=== PATIENT | male | born 1975 | race Hispanic/Latino ===

== ENCOUNTER 2020-02-17 07:00 | Emergency (ER) | payer SELFPAY ==
[~2020-02-17 07:00] MED LIST: ALBU18HF7 IH; AMLO10TA7 PO; FURO20TA6 PO; LOSA1TAB42 PO; METF-444 PO; SIMV10TA97 PO; SYMB8060 IH
[2020-02-17] MEDS ORDERED: OXYMETAZOLINE HCL SPRAY 15 ML BOTTLE ONE (07:27)
[2020-02-17] MEDS ORDERED: METOPROLOL TARTRATE 50 MG TAB ONE ×2 (07:38→08:27)
[2020-02-17] MEDS ORDERED: LABETALOL 20 MG/4 ML DISP.SYRIN IV ONE (09:28)
[2020-02-17] MEDS ORDERED: LORAZEPAM 2 MG/ML 1 ML VIAL ONE (09:29)
[2020-02-17 09:43] LABS: BASOPHILS % (AUTO) 0.4 % (0.0-5.0); HEMATOCRIT 50.6 % (42-54); LYMPHOCYTES % (AUTO) 21.4 % (21.0-51.0); MEAN CORPUSCULAR HEMOGLOBIN 27.7 pg (27.0-33.0); MEAN CORPUSCULAR HGB CONC 32.2 g/dL (32.0-36.0); MEAN CORPUSCULAR VOLUME 86.1 fL (79-99); MONOCYTES % (AUTO) 9.4 % (3.0-13.0); NEUTROPHILS % (AUTO) 67.4 % (40.0-77.0); PLATELET COUNT (AUTO) 197 K/uL (130-400); RED BLOOD CELL COUNT(AUTO) 5.88 MIL/uL (4.50-6.20); RED CELL DISTRIBUTION WIDTH 15.3 % (11.0-15.5); WHITE BLOOD COUNT (AUTO) 7.2 K/uL (4.8-10.8)
[2020-02-17 09:49] LABS: CREATININE 0.9 mg/dL (0.5-1.5); POTASSIUM 4.4 mmol/L (3.5-5.1)
[2020-02-17 09:52] LABS: INR 1.04 (0.85-1.15); PARTIAL THROMBOPLASTIN TIME 27.1 SEC (26.3-35.5); PROTHROMBIN TIME 11.2 SEC (9.6-11.6)
== END 2020-02-17 14:43 | disposition home or self-care (01) ==
LOC: EDH 07:00
DX: R04.0 Epistaxis (principal); I10 Essential (primary) hypertension; Z79.899 Other long term (current) drug therapy
CPT/HCPCS: 30901; 36415; 80048; 85025; 85610; 85730; 96374; 96375; 99285; J2060

== ENCOUNTER 2020-04-28 01:50 | Emergency (ER) | payer OTHER ==
[~2020-04-28 01:50] MED LIST changes: +AMLO-258 PO; -AMLO10TA7 PO
[2020-04-28] MEDS ORDERED: NITROGLYCERIN 0.4 MG SL TAB SL ONE (02:42)
[2020-04-28] MEDS ORDERED: ASPIRIN 325 MG TABLET ONE (02:42)
[2020-04-28 02:43] LABS: BASOPHILS % (AUTO) 0.4 % (0.0-5.0); EOSINOPHILS % (AUTO) 2.1 % (0.0-8.0); HEMATOCRIT 46.9 % (42-54); LYMPHOCYTES % (AUTO) 25.8 % (21.0-51.0); MEAN CORPUSCULAR HGB CONC 31.6 g/dL (32.0-36.0); MEAN CORPUSCULAR VOLUME 82.3 fL (79-99); NEUTROPHILS % (AUTO) 58.6 % (40.0-77.0); PLATELET COUNT (AUTO) 207 K/uL (130-400); RED CELL DISTRIBUTION WIDTH 14.7 % (11.0-15.5); WHITE BLOOD COUNT (AUTO) 7.1 K/uL (4.8-10.8)
[2020-04-28 02:51] LABS: CREATININE 1.2 mg/dL (0.5-1.5); POTASSIUM 3.9 mmol/L (3.5-5.1)
[2020-04-28 02:54] LABS: INR 1.04 (0.85-1.15); PARTIAL THROMBOPLASTIN TIME 26.9 SEC (26.3-35.5); PROTHROMBIN TIME 11.2 SEC (9.6-11.6)
[2020-04-28 02:56] LABS: ALBUMIN 3.5 g/dL (3.5-5.0); BILIRUBIN,TOTAL 0.7 mg/dL (0.2-1.0); TOTAL PROTEIN, SERUM 8.5 g/dL (6.0-8.3)
[2020-04-28 03:02] LABS: APPEARANCE,URINE Clear (CLEAR); BILIRUBIN,URINE Negative (NEGATIVE); COLOR,URINE Yellow (YELLOW); GLUCOSE, URINE (UA) Negative (NEGATIVE); KETONES,URINE Negative (NEGATIVE); LEUKOCYTE ESTERASE ,URINE Negative (NEGATIVE); NITRATE,URINE Negative (NEGATIVE); OCCULT BLOOD,URINE Trace (NEGATIVE); PH,URINE 6.5 (5.0-8.0); PROTEIN,URINE >=1000 mg/dL (NEGATIVE)
[2020-04-28 03:10] LABS: AMPHET/METH SCREEN,URINE NEGATIVE (NEGATIVE); BARBITURATE SCREEN, URINE NEGATIVE (NEGATIVE); BENZODIAZEPINES SCREEN,URINE NEGATIVE (NEGATIVE); CANNABINOID SCREEN,URINE NEGATIVE (NEGATIVE); COCAINE SCREEN,URINE NEGATIVE (NEGATIVE); OPIATE SCREEN,URINE NEGATIVE (NEGATIVE); PHENCYCLIDINE SCREEN,URINE NEGATIVE (NEGATIVE)
[2020-04-28 03:16] LABS: BACTERIA,URINE None Seen /HPF (None Seen); RBC,URINE 0-1 /HPF (0-1); WBC,URINE None Seen /HPF (0-1)
[2020-04-28] MEDS ORDERED: METOCLOPRAMIDE 10 MG/2 ML VIAL ONE (03:26)
[2020-04-28] MEDS ORDERED: DiphenhydrAMINE HCL 50 MG/ML VIAL ONE ×2 (03:26→05:58)
[2020-04-28] MEDS ORDERED: ONDANSETRON HCL 4 MG/2 ML VIAL ONE (03:26)
[2020-04-28] MEDS ORDERED: FAMOTIDINE/PF 20 MG/2 ML VIAL IV ONE (03:27)
[2020-04-28] MEDS ORDERED: PANTOPRAZOLE 40 MG/VIAL ONE (03:27)
[2020-04-28] MEDS ORDERED: LIDOCAINE HCL 2% VISCOUS 15 ML UDCUP ONE (04:54)
[2020-04-28] MEDS ORDERED: MAG HYDROX/AL HYDROX/SIMETH ES 30 ML SUSP UDCUP ONE (04:54)
[2020-04-28] MEDS ORDERED: HYDRALAZINE HCL 20 MG/ML VIAL ONE (05:58)
[2020-04-28] MEDS ORDERED: KETOROLAC TROMETHAMINE 30MG/ML ONE (05:59)
== END 2020-04-28 17:47 | disposition home or self-care (01) ==
LOC: EDH 01:50
DX: R07.89 Other chest pain (principal); R10.13 Epigastric pain; R06.02 Shortness of breath; I10 Essential (primary) hypertension; Z79.899 Other long term (current) drug therapy
CPT/HCPCS: 36415; 71045; 76705; 80053; 80305; 81001; 82550; 83605; 83690; 83880; 84484 ×2; 85025; 85610; 85730; 93005; 96365; 96375 ×2; 96376; 99285; C9113; J0360; J1200 ×2; J1885; J2405; J2765; J3490; 96374

== ENCOUNTER 2020-05-18 19:47 | Emergency (ER) | payer SELFPAY ==
[2020-05-18 20:42] LABS: BASOPHILS % (AUTO) 0.7 % (0.0-5.0); EOSINOPHILS % (AUTO) 1.7 % (0.0-8.0); HEMATOCRIT 45.4 % (42-54); LYMPHOCYTES % (AUTO) 25.6 % (21.0-51.0); MEAN CORPUSCULAR HEMOGLOBIN 25.2 pg (27.0-33.0); MEAN CORPUSCULAR HGB CONC 31.1 g/dL (32.0-36.0); MEAN CORPUSCULAR VOLUME 81.1 fL (79-99); NEUTROPHILS % (AUTO) 58.5 % (40.0-77.0); PLATELET COUNT (AUTO) 190 K/uL (130-400); RED CELL DISTRIBUTION WIDTH 15.3 % (11.0-15.5); WHITE BLOOD COUNT (AUTO) 5.9 K/uL (4.8-10.8)
[2020-05-18 20:54] LABS: CREATININE 1.2 mg/dL (0.5-1.5); POTASSIUM 3.6 mmol/L (3.5-5.1)
[2020-05-18 20:58] LABS: ALBUMIN 3.4 g/dL (3.5-5.0); BILIRUBIN,TOTAL 0.4 mg/dL (0.2-1.0)
[2020-05-18] MEDS ORDERED: SODIUM CHLORIDE 0.9% 1000ML 1,000 ML IV ONE (20:58)
[2020-05-18] MEDS ORDERED: LIDOCAINE HCL 2% VISCOUS 15 ML UDCUP ONE (20:58)
[2020-05-18] MEDS ORDERED: FAMOTIDINE/PF 20 MG/2 ML VIAL IV ONE (20:58)
[2020-05-18] MEDS ORDERED: MAG HYDROX/AL HYDROX/SIMETH ES 30 ML SUSP UDCUP ONE (20:58)
== END 2020-05-18 21:58 | disposition home or self-care (01) ==
LOC: EDH 19:47
DX: R10.13 Epigastric pain (principal); I10 Essential (primary) hypertension; Z79.899 Other long term (current) drug therapy
CPT/HCPCS: 36415; 80053; 83690; 84484; 85025; 93005; 96361; 96374; 99284; J3490; J7030

== ENCOUNTER 2020-05-21 11:51 | Inpatient (IN) | payer SELFPAY ==
[~2020-05-21] VITALS: Ht 182.9 cm; Wt 140.0 kg
[2020-05-21] MEDS ORDERED: METOPROLOL TARTRATE 1 MG/ML 5ML VIAL IV ONE ×2 (12:18→15:22)
[2020-05-21 12:31] LABS: BASOPHILS % (AUTO) 0.5 % (0.0-5.0); EOSINOPHILS % (AUTO) 1.1 % (0.0-8.0); HEMATOCRIT 45.8 % (42-54); LYMPHOCYTES % (AUTO) 20.3 % (21.0-51.0); MEAN CORPUSCULAR HEMOGLOBIN 25.4 pg (27.0-33.0); MEAN CORPUSCULAR HGB CONC 31.2 g/dL (32.0-36.0); MEAN CORPUSCULAR VOLUME 81.2 fL (79-99); MONOCYTES % (AUTO) 11.4 % (3.0-13.0); NEUTROPHILS % (AUTO) 66.4 % (40.0-77.0); PLATELET COUNT (AUTO) 192 K/uL (130-400); RED BLOOD CELL COUNT(AUTO) 5.64 MIL/uL (4.50-6.20); RED CELL DISTRIBUTION WIDTH 15.7 % (11.0-15.5); WHITE BLOOD COUNT (AUTO) 6.3 K/uL (4.8-10.8)
[2020-05-21 12:43] LABS: INR 1.16 (0.85-1.15); PROTHROMBIN TIME 12.2 SEC (9.6-11.6)
[2020-05-21 12:44] LABS: PARTIAL THROMBOPLASTIN TIME 27.1 SEC (26.3-35.5)
[2020-05-21 12:51] LABS: CREATININE 1.1 mg/dL (0.5-1.5); POTASSIUM 3.7 mmol/L (3.5-5.1)
[2020-05-21 12:56] LABS: ALBUMIN 3.4 g/dL (3.5-5.0); BILIRUBIN,TOTAL 0.9 mg/dL (0.2-1.0)
[2020-05-21] MEDS ORDERED: MAG HYDROX/AL HYDROX/SIMETH ES 30 ML SUSP UDCUP ONE (14:02)
[2020-05-21] MEDS ORDERED: LIDOCAINE HCL 2% VISCOUS 15 ML UDCUP ONE (14:02)
[2020-05-21] MEDS ORDERED: FAMOTIDINE 20MG TAB 20 MG TAB ONE (14:03)
[2020-05-21] MEDS ORDERED: NITROGLYCERIN 50 MG/D5% WATER 1 BOT ONE (16:18)
[2020-05-21] MEDS ORDERED: HYDRALAZINE HCL 20 MG/ML VIAL IV PRN (16:45)
[2020-05-21] MEDS ORDERED: HYDROCHLOROTHIAZIDE 25 MG TABLET PO SCH (16:45)
[2020-05-21] MEDS ORDERED: AMLODIPINE BESYLATE 5 MG TAB ONE (17:09)
[2020-05-21] MEDS ORDERED: HYDROCHLOROTHIAZIDE 25 MG TABLET ONE (17:10)
[2020-05-21 17:49] LABS: AMPHET/METH SCREEN,URINE NEGATIVE (NEGATIVE); BARBITURATE SCREEN, URINE NEGATIVE (NEGATIVE); BENZODIAZEPINES SCREEN,URINE NEGATIVE (NEGATIVE); CANNABINOID SCREEN,URINE NEGATIVE (NEGATIVE); COCAINE SCREEN,URINE NEGATIVE (NEGATIVE); OPIATE SCREEN,URINE NEGATIVE (NEGATIVE); PHENCYCLIDINE SCREEN,URINE NEGATIVE (NEGATIVE)
[2020-05-21] MEDS ORDERED: AMLODIPINE BESYLATE 5 MG TAB PO SCH (17:55)
[2020-05-21] MEDS ORDERED: LIDOCAINE HCL 2% VISCOUS 30 ML, MAG HYDROX/AL HYDROX/SIMETH 30 ML, BELLADONNA-PHENOBARB... PO PRN ×3 (18:45)
[2020-05-21] MEDS ORDERED: ACETAMINOPHEN-CODEINE 300/30MG TAB PO PRN (18:45)
[2020-05-21] MEDS ORDERED: NITROGLYCERIN 50 MG/D5% WATER 250 BOT IV SCH (18:45)
[2020-05-21] MEDS ORDERED: COMPOUND PO MISCELLANEOUS 1 EACH MISC MISC PRN (19:00)
[2020-05-21] MEDS ORDERED: LIDO 2% VISC 30ML+MAG/AL/SIMETH 30ML+DICYCLOMINE 20MG 10ML PO PRN ×3 (19:00)
[2020-05-21] MEDS ORDERED: LABETALOL 20 MG/4 ML DISP.SYRIN IV ONE ×2 (19:11→23:03)
[2020-05-21] MEDS ORDERED: METOPROLOL TARTRATE 50 MG TAB ONE (19:11)
[2020-05-21 20:03] LABS: % IRON SATURATION 14.6 % (30-44); IRON, SERUM 56 mcg/dL (65-175); TOTAL IRON BINDING CAPACITY 383 mcg/dL (250-450)
[2020-05-21] MEDS ORDERED: ENOXAPARIN SODIUM 40 MG/0.4 ML SYRINGE SQ ONE (20:29)
[2020-05-21] MEDS ORDERED: PANTOPRAZOLE 40 MG/VIAL ONE (20:30)
[2020-05-21] MEDS ORDERED: ACETAMINOPHEN-CODEINE 300/30MG TAB ONE (22:53)
[2020-05-22] MEDS ORDERED: METOPROLOL TARTRATE 50 MG TAB ONE ×4 (04:54→21:11)
[2020-05-22] MEDS ORDERED: PANTOPRAZOLE 40 MG/VIAL ONE ×2 (09:41→21:11)
[2020-05-22] MEDS ORDERED: LOSARTAN 50 MG TABLET ONE (09:41)
[2020-05-22] MEDS ORDERED: ENOXAPARIN SODIUM 40 MG/0.4 ML SYRINGE SQ ONE (09:41)
[2020-05-22] MEDS ORDERED: AMLODIPINE BESYLATE 5 MG TAB ONE (09:45)
[2020-05-22 10:40] LABS: CREATININE 1.1 mg/dL (0.5-1.5)
[2020-05-22 10:59] LABS: BASOPHILS % (AUTO) 0.3 % (0.0-5.0); EOSINOPHILS % (AUTO) 0.8 % (0.0-8.0); HEMATOCRIT 46.6 % (42-54); LYMPHOCYTES % (AUTO) 15.3 % (21.0-51.0); MEAN CORPUSCULAR HEMOGLOBIN 24.8 pg (27.0-33.0); MEAN CORPUSCULAR HGB CONC 30.9 g/dL (32.0-36.0); MEAN CORPUSCULAR VOLUME 80.2 fL (79-99); MONOCYTES % (AUTO) 10.5 % (3.0-13.0); NEUTROPHILS % (AUTO) 72.9 % (40.0-77.0); PLATELET COUNT (AUTO) 185 K/uL (130-400); RED BLOOD CELL COUNT(AUTO) 5.81 MIL/uL (4.50-6.20); WHITE BLOOD COUNT (AUTO) 6.5 K/uL (4.8-10.8)
[2020-05-22] MEDS ORDERED: LABETALOL 20 MG/4 ML DISP.SYRIN IV ONE (15:43)
[2020-05-23 06:32] LABS: BASOPHILS % (AUTO) 0.3 % (0.0-5.0); EOSINOPHILS % (AUTO) 2.1 % (0.0-8.0); HEMATOCRIT 46.7 % (42-54); LYMPHOCYTES % (AUTO) 23.1 % (21.0-51.0); MEAN CORPUSCULAR HEMOGLOBIN 25.2 pg (27.0-33.0); MEAN CORPUSCULAR HGB CONC 30.8 g/dL (32.0-36.0); MEAN CORPUSCULAR VOLUME 81.6 fL (79-99); MONOCYTES % (AUTO) 12.7 % (3.0-13.0); NEUTROPHILS % (AUTO) 61.6 % (40.0-77.0); PLATELET COUNT (AUTO) 199 K/uL (130-400); RED BLOOD CELL COUNT(AUTO) 5.72 MIL/uL (4.50-6.20); RED CELL DISTRIBUTION WIDTH 16.1 % (11.0-15.5); WHITE BLOOD COUNT (AUTO) 6.2 K/uL (4.8-10.8)
[2020-05-23 06:49] LABS: CREATININE 1.1 mg/dL (0.5-1.5); MAGNESIUM 2.3 mg/dL (1.80-2.40); POTASSIUM 3.5 mmol/L (3.5-5.1)
[2020-05-23] MEDS ORDERED: AMLODIPINE BESYLATE 5 MG TAB ONE ×2 (08:48→08:53)
[2020-05-23] MEDS ORDERED: METOPROLOL TARTRATE 50 MG TAB ONE ×2 (08:49→22:03)
[2020-05-23] MEDS ORDERED: LOSARTAN 50 MG TABLET ONE (08:49)
[2020-05-23] MEDS ORDERED: PANTOPRAZOLE 40 MG/VIAL ONE ×2 (08:49→22:03)
[2020-05-23] MEDS ORDERED: HYDROCHLOROTHIAZIDE 25 MG TABLET ONE (08:49)
[2020-05-23] MEDS ORDERED: ENOXAPARIN SODIUM 40 MG/0.4 ML SYRINGE SQ ONE (08:52)
[2020-05-23 09:13] LABS: HEPATITIS A ANTIBODY IGM Negative (Negative); HEPATITIS B CORE IGM Negative (Negative); HEPATITIS Bs ANTIGEN SCREEN P Negative (Negative)
[2020-05-23] MEDS ORDERED: ENALAPRILAT DIHYDRATE 1.25MG/ML 1ML VIAL IV ONE (11:50)
[2020-05-23] MEDS ORDERED: SUCRALFATE 1 GM TABLET ONE (17:59)
[2020-05-23] MEDS: LOSARTAN 100 MG TABLET PO SCH (23:30)
[2020-05-23] MEDS: PANTOPRAZOLE 40 MG/VIAL IVP SCH (23:30)
[2020-05-23] MEDS: AMLODIPINE BESYLATE 5 MG TAB PO SCH (23:30)
[2020-05-23] MEDS: SUCRALFATE 1 GM TABLET PO SCH (23:30)
[2020-05-23] MEDS: ENOXAPARIN SODIUM 40 MG/0.4 ML SYRINGE SQ SCH (23:30)
[2020-05-23] MEDS: METOPROLOL TARTRATE 50 MG TAB PO SCH (23:30)
[2020-05-23] MEDS: HYDROCHLOROTHIAZIDE 25 MG TABLET PO SCH (23:30)
[2020-05-23 23:35] VITALS: BP 163/118
[2020-05-24 04:43] VITALS: BP 158/102
[2020-05-24 05:26] LABS: BASOPHILS % (AUTO) 0.4 % (0.0-5.0); EOSINOPHILS % (AUTO) 2.2 % (0.0-8.0); HEMATOCRIT 49.7 % (42-54); LYMPHOCYTES % (AUTO) 25.7 % (21.0-51.0); MEAN CORPUSCULAR HEMOGLOBIN 24.7 pg (27.0-33.0); MEAN CORPUSCULAR HGB CONC 30.4 g/dL (32.0-36.0); MEAN CORPUSCULAR VOLUME 81.2 fL (79-99); MONOCYTES % (AUTO) 12.9 % (3.0-13.0); NEUTROPHILS % (AUTO) 58.4 % (40.0-77.0); PLATELET COUNT (AUTO) 217 K/uL (130-400); RED BLOOD CELL COUNT(AUTO) 6.12 MIL/uL (4.50-6.20); RED CELL DISTRIBUTION WIDTH 16.5 % (11.0-15.5); WHITE BLOOD COUNT (AUTO) 7.2 K/uL (4.8-10.8)
[2020-05-24] MEDS: SUCRALFATE 1 GM TABLET PO SCH ×4 (05:32→23:08)
[2020-05-24 05:49] LABS: CREATININE 1.2 mg/dL (0.5-1.5); POTASSIUM 3.3 mmol/L (3.5-5.1)
[2020-05-24] MEDS ORDERED: PANTOPRAZOLE SODIUM 40 MG TABLET.DR ONE (07:47)
[2020-05-24] MEDS: HYDROCHLOROTHIAZIDE 25 MG TABLET PO SCH (07:49)
[2020-05-24] MEDS: AMLODIPINE BESYLATE 5 MG TAB PO SCH (07:49)
[2020-05-24] MEDS: LOSARTAN 100 MG TABLET PO SCH (07:49)
[2020-05-24] MEDS: METOPROLOL TARTRATE 50 MG TAB PO SCH ×2 (07:50→20:31)
[2020-05-24] MEDS: ENOXAPARIN SODIUM 40 MG/0.4 ML SYRINGE SQ SCH (07:50)
[2020-05-24] MEDS: PANTOPRAZOLE 40 MG/VIAL IVP SCH ×2 (08:04→21:35)
[2020-05-24] MEDS ORDERED: METO100T14 PO (11:41)
[2020-05-24] MEDS ORDERED: PANT40TA PO (11:41)
[2020-05-24] MEDS ORDERED: MAAL30 PO (11:41)
[2020-05-24] MEDS ORDERED: SUCR1TAB28 PO (11:41)
[2020-05-24] MEDS ORDERED: PHARMACY COMMUNICATION MISC SCH (11:45)
[2020-05-24] MEDS ORDERED: COMPOUND PO MISCELLANEOUS 1 EACH MISC MISC PRN (11:45)
[2020-05-24 15:30] VITALS: BP 168/110
[2020-05-24] MEDS ORDERED: HYDRALAZINE HCL 25 MG TABLET ONE (16:03)
[2020-05-24] MEDS: HYDRALAZINE HCL 25 MG TABLET PO SCH ×2 (17:00→20:31)
[2020-05-24 20:00] VITALS: BP 162/110
[2020-05-24] MEDS: LABETALOL 20 MG/4 ML DISP.SYRIN IV PRN (23:46)
[2020-05-24] MEDS: LIDO 2% VISC 30ML+MAG/AL/SIMETH 30ML+DICYCLOMINE 20MG 10ML PO PRN ×3 (23:47)
[2020-05-25] VITALS: BP 179/112
[2020-05-25 01:15] VITALS: BP 154/67
[2020-05-25] MEDS: LABETALOL 20 MG/4 ML DISP.SYRIN IV PRN (03:51)
[2020-05-25 04:00] VITALS: BP 171/112
[2020-05-25] MEDS: SUCRALFATE 1 GM TABLET PO SCH (04:48)
[2020-05-25 04:53] VITALS: BP 168/108
[2020-05-25] MEDS: LIDO 2% VISC 30ML+MAG/AL/SIMETH 30ML+DICYCLOMINE 20MG 10ML PO PRN ×3 (05:52)
[2020-05-25] MEDS ORDERED: PANTOPRAZOLE SODIUM 40 MG TABLET.DR ONE (07:14)
[2020-05-25 07:17] VITALS: BP 161/103
[2020-05-25] MEDS: HYDROCHLOROTHIAZIDE 25 MG TABLET PO SCH (07:20)
[2020-05-25] MEDS: LOSARTAN 100 MG TABLET PO SCH (07:20)
[2020-05-25] MEDS: HYDRALAZINE HCL 25 MG TABLET PO SCH (07:20)
[2020-05-25] MEDS: AMLODIPINE BESYLATE 5 MG TAB PO SCH (07:20)
[2020-05-25] MEDS: ENOXAPARIN SODIUM 40 MG/0.4 ML SYRINGE SQ SCH (07:21)
[2020-05-25] MEDS: METOPROLOL TARTRATE 50 MG TAB PO SCH (07:21)
[2020-05-25] MEDS: PANTOPRAZOLE 40 MG/VIAL IVP SCH (09:00)
[2020-05-25] MEDS ORDERED: HYDR-4153 PO (11:23)
[2020-05-25] MEDS ORDERED: DICY10 PO (11:23)
[2020-05-25 11:59] VITALS: BP 159/105
== END 2020-05-25 14:15 | disposition home or self-care (01) | DRG 305 ==
LOC: EDH 11:51 → OBSVTOIN 11:52 → EDHIP 11:52 → 4CH 05-23 23:49
PROVIDERS: ADMIT Internal Medicine; ATTEND Internal Medicine
DX: I16.0 Hypertensive urgency (principal); E44.0 Moderate protein-calorie malnutrition; Z68.41 Body mass index [BMI] 40.0-44.9, adult; K21.9 Gastro-esophageal reflux disease without esophagitis; Z20.822 Contact with and (suspected) exposure to COVID-19; I10 Essential (primary) hypertension; K76.0 Fatty (change of) liver, not elsewhere classified; F17.210 Nicotine dependence, cigarettes, uncomplicated; R13.10 Dysphagia, unspecified; K57.90 Diverticulosis of intestine, part unspecified, without perforation or abscess without bleeding; I95.9 Hypotension, unspecified; K59.00 Constipation, unspecified; Z79.899 Other long term (current) drug therapy; Z82.49 Family history of ischemic heart disease and other diseases of the circulatory system
CPT/HCPCS: 36415; 70450; 74176; 80048; 80053; 80074; 80305; 82270; 82550; 82948; 83540; 83550; 83735; 83880; 84443; 84484; 85025; 85610; 85730; 86677; 87338; 87426; 92610; 93005; 93306; C9113; G0378; J1650; J3490; U0003

== ENCOUNTER 2020-11-22 18:12 | Emergency (ER) | payer BC ==
[~2020-11-22] VITALS: Ht 182.9 cm; Wt 142.4 kg
[~2020-11-22 18:12] MED LIST changes: +DICY10 PO; +HYDR-4153 PO; +MAAL30 PO; +METO100T14 PO; +PANT40TA PO; +SUCR1TAB28 PO
[2020-11-22 18:14] VITALS: BP 255/163
[2020-11-22 19:30] VITALS: BP 165/101
[2020-11-22] MEDS ORDERED: CORTSOL AD (20:41)
== END 2020-11-22 20:48 | disposition home or self-care (01) ==
LOC: EDH 18:12
DX: H92.03 Otalgia, bilateral (principal); I10 Essential (primary) hypertension; E10.9 Type 1 diabetes mellitus without complications; Z79.84 Long term (current) use of oral hypoglycemic drugs; Z79.899 Other long term (current) drug therapy
CPT/HCPCS: 99281; 99282

== ENCOUNTER 2024-04-10 11:22 | Emergency (ER) | payer BC ==
[~2024-04-10] VITALS: Ht 180.3 cm; Wt 124.7 kg
[~2024-04-10 11:22] MED LIST changes: -ALBU18HF7 IH; -AMLO-258 PO; +ASPI-1005 PO; -DICY10 PO; -FURO20TA6 PO; -HYDR-4153 PO; -MAAL30 PO; +SIMV-43 PO; -SIMV10TA97 PO; -SUCR1TAB28 PO; -SYMB8060 IH; +VERA360C2 PO
--- NOTE | 2024-04-10 11:35 | EKG ---
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 : 1975 Requested By: RIK SHANKAR Order Number: [id number] Reading MD: Clovis Ellis Measurements Intervals [place] Rate: 98 P: 63 WY: 214 QRS: 21 QRSD: 96 T: 36 QT: 334 QTc: 427 Interpretive Statements Sinus rhythm Prolonged [place] interval Low voltage, precordial leads Consider anteroseptal infarct question acute Compared to ECG 12/10/2023 02:01:53 First degree AV block now present Low QRS voltage now present Myocardial infarct finding now present Sinus tachycardia no longer present Electronically Signed On 04-11-2024 15:12:01 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
--- NOTE | 2024-04-10 11:40 | ERN ---
General Chief Complaint: Hypertension Stated Complaint: UNCONTROLLED BP X 2 DAYS Time Seen by MD: 11:24 Time Seen by Midlevel: 11:24 Source: patient History of Present Illness Initial Comments Patient is a 48-year-old male with a past medical history of atrial fibrillation, type 2 diabetes, and hypertension who presents to the emergency department for evaluation of an elevated blood pressure reading at home. Patient states that for the last two days blood pressure has been a little higher than usual. Initial blood pressure on arrival was today he states he developed a burning sensation to his chest so he decided to report to the ER for further evaluation. Current medications include when draw, metoprolol, and losartan. Patient denies any shortness of breath, nausea, vomiting, fever, chills, or any other symptoms at this time. Allergies: Coded Allergies: No Known Drug Allergies (Unverified Allergy, Unknown, 05/19/15) Home Meds Active Scripts Verapamil HCl (Verapamil HCl) 360 Mg Cap24h.pel, 360 MG PO DAILY for 30 Days, #30 MG Prov:MICHAEL OSORIO NP 12/12/23 Simvastatin (Simvastatin) 20 Mg Tablet, 20 MG PO HS, #30 TAB 0 Refills Prov:ESTHELA ALCOCER MD 06/17/23 Metoprolol Tartrate (Metoprolol Tartrate) 100 Mg Tablet, 100 MG PO BID for HTN for 30 Days, #60 TAB 0 Refills Prov:ESTHELA ALCOCER MD 06/17/23 Losartan/Hydrochlorothiazide (Losartan-Hctz 100-12.5 mg Tab) 100 Mg-12.5 Mg Tablet, 1 EACH PO DAILY, #30 TAB 0 Refills Prov:ESTHELA ALCOCER MD 06/17/23 Pantoprazole Sodium (Protonix) 40 Mg Tablet.dr, 40 MG PO DAILY for 30 Days, #30 TAB 0 Refills Prov:MESHA KELLOGG AGPCNP 05/24/20 Reported Medications Aspirin (ASPIRIN 81MG CHEW TAB) 81 Mg Tab.chew, 81 MG PO DAILY, TAB.CHEW 06/15/23 Metformin HCl (Metformin HCl) 500 Mg Tablet, 500 MG PO BIDAC, TAB 05/19/15 Past Medical History Past Medical History: A-Fib, Diabetes-Type II, High Cholesterol, Heart Disease, Hypertension Medical History Other: GASTRITIS Past Surgical History: None Surgical History Other: STENTS, CARDIAC ABLATION ROS Dictation CONSTITUTIONAL: Negative except for HPI HEAD/FACE: Negative except for HPI EENT: Negative except for HPI RESPIRATORY: Negative except for HPI GASTROINTESTINAL/ABDOMINAL: Negative except for HPI GENITOURINARY: Negative except for HPI MUSCULOSKELETAL: Negative except for HPI INTEGUMENTARY: Negative except for HPI NEUROLOGICAL/PSYCH: Negative except for HPI HEMATOLOGIC/LYMPHATIC: Negative except for HPI All Systems Negative, Except as noted above. 13 point review of systems assessed and all negative except for above. Physical Exam Physical Exam Dictation Vital Signs reviewed General Appearance: Alert, oriented x 3, no acute distress, well developed, nourished. Head and Face: non-traumatic. Eyes: PERRL, pink conjunctivas, eyelid no trauma, anterior chamber with arcus senilis. Ears: Pinnas intact and no signs of trauma or erythema ear canals clear and no discharge TM no erythema Nose: No discharge, no bleeding. Oropharynx: Mouth normal, tongue pink, pharynx clear,no erythema, tonsils no exudates, no abscesses noted, mucous memb matthew moist Neck: Supple, non-tender, no thyromegaly, no masses, no JVD, no bruits Breast:Deferred Chest:No tenderness, no crepitus, no paradoxical movement, no retractions Lungs:Clear, well-ventilated, symmetric, no rales, no wheezing, no rhonchi, no s tridor, good breath sounds bilaterally Heart: Regular rate, regular rhythm, no murmur, no gallops Vascular: no peripheral edema, Abdomen: Soft, positive bowel sounds, nondistended, no guarding, nontender, no rebound, no masses no hepatomegaly, no splenomegaly, no Liang's sign, no hernias. Rectal: Deferred Genital: Deferred Neurological: Normal speech, motor function intact, sensory function intact Musculoskeletal: Neck nontender, full range of motion, back nontender, full range of motion, Extremities: nontender, full range of motion Skin: Color pink, dry, no turgor, no rash, no lacerations, no abrasions, no contusions. Lymphatic: Deferred Results Laboratory and Microbiology Lab and Micro Result Laboratory Tests Test 04/10/24 12:00 White Blood Count 6.2 K/uL (4.8-10.8) Red Blood Count 5.31 MIL/uL (4.50-6.20) Hemoglobin 15.9 g/dL (14.0-18.0) Hematocrit 48.2 % (42-54) Mean Corpuscular Volume 90.8 fL (79-99) Mean Corpuscular Hemoglobin 29.9 pg (27.0-33.0) Mean Corpuscular Hemoglobin Concent 33.0 g/dL (32.0-36.0) Red Cell Distribution Width 12.5 % (11.0-15.5) Platelet Count 217 K/uL (130-400) Mean Platelet Volume 10.6 fL (7.5-10.5) H Immature Granulocyte % (Auto) 0.2 % (0-1) Neutrophils (%) (Auto) 55.9 % (40.0-77.0) Lymphocytes (%) (Auto) 31.3 % (21.0-51.0) Monocytes (%) (Auto) 10.6 % (3.0-13.0) Eosinophils (%) (Auto) 1.5 % (0.0-8.0) Basophils (%) (Auto) 0.5 % (0.0-5.0) Neutrophils # (Auto) 3.5 K/uL (1.8-7.7) Lymphocytes # (Auto) 1.9 K/uL (1.0-4.8) Monocytes # (Auto) 0.7 K/uL (0.1-1.0) Eosinophils # (Auto) 0.09 K/uL (0.00-0.70) Basophils # (Auto) 0.03 K/uL (0.00-0.20) Absolute Immature Granulocyte (auto 0.01 K/uL (0-1) Nucleated Red Blood Cells 0.0 % (0.0-0.19) Sodium Level 139 mmol/L (136-145) Potassium Level 4.2 mmol/L (3.5-5.1) Chloride Level 102 mmol/L (101-111) Carbon Dioxide Level 30 mmol/L (21-32) Blood Urea Nitrogen 17 mg/dL (7-18) Creatinine 0.9 mg/dL (0.5-1.3) Glomerular Filtration Rate Calc 105 mL/min (>90) Random Glucose 102 mg/dL (70-105) Total Calcium 9.6 mg/dL (8.5-10.1) Magnesium Level 1.70 mg/dL (1.80-2.40) L Total Creatine Kinase 54 U/L (21-232) # Troponin I High Sensitivity 8 ng/L (4-75) B-Type Natriuretic Peptide 31 pg/mL (0-100) Labs Reviewed?: Yes EKG/XRAY/US/CT/MRI EKG Comment Date: April 10, 2024 Time: 11:30 a.m. Ventricular rate: 98 MS interval: 214 QRS duration: 96 QT/QTc: 334/427 EKG interpretation: Normal sinus rhythm with a ventricular rate of 98 beats per minute, no ST elevations, no bundle branch blocks Reviewed by ED Attending MDM MDM: Differential diagnosis: ACS, noncardiac chest pain, costochondritis, anxiety, gastritis, reflux, uncontrolled hypertension There are no social concerns with this patient. Prescription drug management Prescriptions will include: None Medical management and examination interpretation discussions were had by me with other qualified healthcare professionals as indicated for the patient's care. ED Course Orders Procedure Category Date Status Time Cbc With Differential LAB 04/10/24 Complete 11:27 Basic Metabolic Panel LAB 04/10/24 Complete 11:27 B-Type Natriuretic LAB 04/10/24 Complete Peptide 11:27 Creatine Kinase, Total LAB 04/10/24 Complete 11:27 Magnesium LAB 04/10/24 Complete 11:27 Troponin I High LAB 04/10/24 Complete Sensitivity 11:27 12 Lead Ekg Tracing- EKG 04/10/24 Complete Technical 11:27 Chest 1vw RAD 04/10/24 Resulted 11:27 Vital Signs Date Time Temp Pulse Resp B/P (MAP) Pulse Ox O2 Delivery O2 Flow Rate FiO2 04/10/24 13:47 97.9 90 18 148/97 99 Room Air* 0 21 04/10/24 11:48 97.9 90 18 152/99 97 Room Air* 0 21 04/10/24 11:23 97.5 94 16 158/105 99 Room Air 0 [place] [id number] [address] IMAGING REPORT Signed PATIENT: MADISON SMITH MR#: [id number] : 1975 SEX: M AGE: 48 LOCATION: EDH ORDER [id number] STATUS: REG ER REPORT#: [id number] SERVICE 26 REASON: chest pain and sob ORDERING PHYSICIAN: RIK SHANKAR PROCEDURE: CXR1VW - CHEST 1VW CHEST 1VW REASON: chest pain and sob COMPARISON: 12/11/2023 FINDINGS: Single view of the chest was obtained. Lungs are clear. Heart size is normal. There is no pulmonary vascular congestion. Mediastinum and bony thorax appear unremarkable. IMPRESSION: 1. Normal single view chest x-ray. DICTATED BY: VICKY OWEN MD DATE: 04/10/24 1228 ELECTRONICALLY SIGNED BY: VICKY OWEN MD DATE: 04/10/24 1230 HEART Score Response (Comments) Value History: Low suspicion (0) 0 EKG: Normal 0 Age: 45-65yrs (+1) 1 Risk Factors: 3+ risk factors (+2) 2 Initial Troponin: Normal limit (0) 0 HEART Score Risk: Low Risk for MACE (1-3) Total 3 DX & DISP Disposition: Discharge Departure Impression: Primary Impression: Uncontrolled hypertension Additional Impression: Non-cardiac chest pain Condition: Stable Referrals: ZEKE SHANKAR MD (PCP) Time of Disposition: 13:36 I have reviewed the case, and I agree with, Diagnosis and Plan You have been reviewed in the emergency department at [facility] after presenting with chest pain. After considering your history, your risk factors, your EKG and your blood test troponins, have been found to be at very low risk less than (1 in 100) of having a major adverse cardiac event (like heart attack) in the near future. In the " low risk" group, the risks of doing further tests and treatment as the inpatient outweighs the benefits. In many patients in the low risk group for the test of any sort or unnecessary, however he should discuss this further with his general practitioner who will understand the medical and personal backgrounds better. Because we have never declared you" no risk" we would suggest. 1 returning for medical review if you have further episodes of chest pain/arm pain or other concerning symptoms like dizziness, collapse, palpitations or shortness of breath. 2. Following up with your local doctor who will consider the need for further testing and will also ensure that any modifiable risk factors you may have for heart disease are optimally managed. Patient will be discharged in stable condition at the moment discharge patient s tates , no chest pain ATTESTATION BY PHYSICIAN I PERFORMED THE SUBSTANTIVE PORTION OF THE VISIT. I HAVE REVIEWED AND PERSONALLY MADE AND APPROVED THE MANAGEMENT PLAN THAT IS DOCUMENTED IN THE NOTE BY MYSELF FOR THE A PP. I ACKNOWLEDGED FOR RESPONSIBILITY FOR THE PATIENT'S MANAGEMENT PLAN. RIK SHANKAR Apr 10, 2024 11:40 ARMAAN NAIDU MD Apr 10, 2024 17:15
[2024-04-10 12:17] LABS: BASOPHILS # (AUTO) 0.03 K/uL (0.00-0.20); BASOPHILS % (AUTO) 0.5 % (0.0-5.0); EOSINOPHILS # (AUTO) 0.09 K/uL (0.00-0.70); EOSINOPHILS % (AUTO) 1.5 % (0.0-8.0); HEMATOCRIT 48.2 % (42-54); IMMATURE GRANULOCYTE ABSOLUTE 0.01 K/uL (0-1); LYMPHOCYTES # (AUTO) 1.9 K/uL (1.0-4.8); LYMPHOCYTES % (AUTO) 31.3 % (21.0-51.0); MEAN CORPUSCULAR HEMOGLOBIN 29.9 pg (27.0-33.0); MEAN CORPUSCULAR VOLUME 90.8 fL (79-99); MONOCYTES # (AUTO) 0.7 K/uL (0.1-1.0); MONOCYTES % (AUTO) 10.6 % (3.0-13.0); NEUTROPHILS # (AUTO) 3.5 K/uL (1.8-7.7); NEUTROPHILS % (AUTO) 55.9 % (40.0-77.0); PLATELET COUNT (AUTO) 217 K/uL (130-400); RED BLOOD CELL COUNT(AUTO) 5.31 MIL/uL (4.50-6.20); RED CELL DISTRIBUTION WIDTH 12.5 % (11.0-15.5); WHITE BLOOD COUNT (AUTO) 6.2 K/uL (4.8-10.8)
--- NOTE | 2024-04-10 12:30 | HMCIMG ---
CHEST 1VW REASON: chest pain and sob COMPARISON: 12/11/2023 FINDINGS: Single view of the chest was obtained. Lungs are clear. Heart size is normal. There is no pulmonary vascular congestion. Mediastinum and bony thorax appear unremarkable. IMPRESSION: 1. Normal single view chest x-ray.
[2024-04-10 12:45] LABS: B-TYPE NATRIURETIC PEPTIDE 31 pg/mL (0-100)
[2024-04-10 13:05] LABS: CREATININE 0.9 mg/dL (0.5-1.3); POTASSIUM 4.2 mmol/L (3.5-5.1)
[2024-04-10 13:10] LABS: MAGNESIUM 1.7 mg/dL (1.80-2.40)
[2024-04-10 13:47] VITALS: BP 148/97; PULSE 90; RESP 18; TEMP 97.9; O2SAT 99
== END 2024-04-10 13:54 | disposition home or self-care (01) ==
LOC: EDH 11:22
DX: I10 Essential (primary) hypertension (principal); R07.89 Other chest pain; E11.9 Type 2 diabetes mellitus without complications; E78.00 Pure hypercholesterolemia, unspecified; I48.91 Unspecified atrial fibrillation; Z79.82 Long term (current) use of aspirin; Z79.899 Other long term (current) drug therapy
CPT/HCPCS: 36415; 71045; 80048; 82550; 83735; 83880; 84484; 85025; 93005; 99284

== ENCOUNTER 2024-05-10 20:13 | Inpatient (IN) | payer BC ==
[~2024-05-10] VITALS: Ht 182.9 cm; Wt 144.2 kg
[2024-05-10 20:53] LABS: APPEARANCE,URINE CLEAR (CLEAR); BILIRUBIN,URINE NEGATIVE (NEGATIVE); COLOR,URINE COLORLESS (YELLOW); GLUCOSE, URINE (UA) NEGATIVE (NEGATIVE); KETONES,URINE NEGATIVE (NEGATIVE); LEUKOCYTE ESTERASE ,URINE NEGATIVE Leu/uL (NEGATIVE); NITRATE,URINE NEGATIVE (NEGATIVE); PH,URINE 6.5 (5.0-8.0); PROTEIN,URINE 100 mg/dL (NEGATIVE); UROBILINOGEN,URINE 0.2 mg/dL (0.2-1.0)
[2024-05-10 20:56] LABS: POTASSIUM 3.5 mmol/L (3.5-5.1)
[2024-05-10 20:57] LABS: ADD UA MICROSCOPIC YES
[2024-05-10 20:58] LABS: WBC,URINE 0-1 /HPF (0-1)
[2024-05-10 21:01] LABS: BASOPHILS # (AUTO) 0.03 K/uL (0.00-0.20); BASOPHILS % (AUTO) 0.5 % (0.0-5.0); EOSINOPHILS % (AUTO) 1.5 % (0.0-8.0); HEMATOCRIT 45.2 % (42-54); IMMATURE GRANULOCYTE ABSOLUTE 0.04 K/uL (0-1); LYMPHOCYTES # (AUTO) 1.4 K/uL (1.0-4.8); LYMPHOCYTES % (AUTO) 20.9 % (21.0-51.0); MEAN CORPUSCULAR HGB CONC 32.1 g/dL (32.0-36.0); MEAN CORPUSCULAR VOLUME 81.1 fL (79-99); MONOCYTES # (AUTO) 0.7 K/uL (0.1-1.0); NEUTROPHILS # (AUTO) 4.3 K/uL (1.8-7.7); NEUTROPHILS % (AUTO) 65.5 % (40.0-77.0); PLATELET COUNT (AUTO) 168 K/uL (130-400); RED BLOOD CELL COUNT(AUTO) 5.57 MIL/uL (4.50-6.20); RED CELL DISTRIBUTION WIDTH 15.7 % (11.0-15.5); WHITE BLOOD COUNT (AUTO) 6.6 K/uL (4.8-10.8)
--- NOTE | 2024-05-10 21:06 | HMCIMG ---
Exam Type: CHEST 1VW Clinical Information: cp Comparison: None Findings: The lungs are clear of infiltrates. The heart is normal in size. The bony and soft tissue structures of the chest are unremarkable. Impression: Clear lungs.
[2024-05-10] MEDS: hydrALAZine 20MG/ML VIAL IM ONE (21:18)
[2024-05-10] MEDS: ASPIRIN 325MG TAB PO ONE (21:19)
[2024-05-10] MEDS: hydrALAZine 20MG/ML VIAL IV ONE (21:19)
[2024-05-10 21:32] LABS: B-TYPE NATRIURETIC PEPTIDE 188 pg/mL (0-100)
[2024-05-10 22:20] LABS: SARS-CoV-2, RNA, NAAT NEGATIVE SARS CoV-2 (NEGATIVE)
[2024-05-10 22:21] LABS: INFLUENZA TYPE A Negative For Type A (NEGATIVE); INFLUENZA TYPE B Negative For Type B (NEGATIVE)
[2024-05-10 22:28] LABS: AMPHET/METH SCREEN,URINE NEGATIVE (NEGATIVE); BARBITURATE SCREEN, URINE NEGATIVE (NEGATIVE); BENZODIAZEPINES SCREEN,URINE NEGATIVE (NEGATIVE); CANNABINOID SCREEN,URINE NEGATIVE (NEGATIVE); COCAINE SCREEN,URINE NEGATIVE (NEGATIVE); OPIATE SCREEN,URINE NEGATIVE (NEGATIVE); PHENCYCLIDINE SCREEN,URINE NEGATIVE (NEGATIVE)
[2024-05-10] MEDS: LAbetaLOL 20MG SYG IV ONE (22:48)
[2024-05-10] MEDS ORDERED: morPHINE 4 MG SYG IV PRN (23:30)
[2024-05-10] MEDS ORDERED: ondanSETRON 4MG INJ IV PRN (23:30)
--- NOTE | 2024-05-10 23:38 | ERN ---
ED Note History of Present Illness Stated Complaint: C/O PALPITATIONS WITH PAIN TO BACK OF NECK Chief Complaint: Palpitations Time Seen by MD: 20:15 Allergies: Coded Allergies: No Known Drug Allergies (Unverified Allergy, Unknown, 05/19/15) Home Meds Active Scripts Verapamil HCl (Verapamil HCl) 360 Mg Cap24h.pel, 360 MG PO DAILY for 30 Days, #30 MG Prov:MICHAEL OSORIO NP 12/12/23 Simvastatin (Simvastatin) 20 Mg Tablet, 20 MG PO HS, #30 TAB 0 Refills Prov:ESTHELA ALCOCER MD 06/17/23 Metoprolol Tartrate (Metoprolol Tartrate) 100 Mg Tablet, 100 MG PO BID for HTN for 30 Days, #60 TAB 0 Refills Prov:ESTHELA ALCOCER MD 06/17/23 Losartan/Hydrochlorothiazide (Losartan-Hctz 100-12.5 mg Tab) 100 Mg-12.5 Mg Tablet, 1 EACH PO DAILY, #30 TAB 0 Refills Prov:ESTHELA ALCOCER MD 06/17/23 Pantoprazole Sodium (Protonix) 40 Mg Tablet.dr, 40 MG PO DAILY for 30 Days, #30 TAB 0 Refills Prov:MESHA KELLOGG AGPCNP 05/24/20 Reported Medications Aspirin (ASPIRIN 81MG CHEW TAB) 81 Mg Tab.chew, 81 MG PO DAILY, TAB.CHEW 06/15/23 Metformin HCl (Metformin HCl) 500 Mg Tablet, 500 MG PO BIDAC, TAB 05/19/15 Past Medical History Dictation 48-year-old male with past medical history of high blood pressure and enlarged heart presents via private vehicle with acute dyspnea and palpitations. Patient states that his blood pressure has been uncontrolled today and that he has been having difficulty breathing and has had exertional dyspnea. Patient denies fevers, chest pain, nausea, vomiting diaphoresis, syncope, presyncope, productive cough Past Medical History: Diabetes-Type II, Heart Disease, Hypertension Additional Past Medical Hx: GASTRITIS Surgical History: None Surgical History Other: STENTS, CARDIAC ABLATION Review of System Dictation See HPI Initial Vital Sign VS Vital Signs Date Time Temp Pulse Resp B/P (MAP) Pulse Ox O2 Delivery O2 Flow Rate FiO2 05/10/24 20:14 98.4 116 20 210/132 96 Room Air 12/25/24 20:42 0 21 Physical Exam Dictation Acutely weak appearing, elevated BMI, tachypneic, respiratory distress, no pitting edema, abdomen is soft, nontender, tachycardic, regular rhythm Results (Laboratory/Radiology) Laboratory/Radiology Laboratory Tests Test 05/10/24 20:41 05/10/24 20:45 05/10/24 21:13 05/10/24 21:49 White Blood Count 6.6 K/uL (4.8-10.8) Red Blood Count 5.57 MIL/uL (4.50-6.20) Hemoglobin 14.5 g/dL (14.0-18.0) Hematocrit 45.2 % (42-54) Mean Corpuscular Volume 81.1 fL (79-99) Mean Corpuscular Hemoglobin 26.0 pg (27.0-33.0) L Mean Corpuscular Hemoglobin Concent 32.1 g/dL (32.0-36.0) Red Cell Distribution Width 15.7 % (11.0-15.5) H Platelet Count 168 K/uL (130-400) Mean Platelet Volume 11.0 fL (7.5-10.5) H Immature Granulocyte % (Auto) 0.6 % (0-1) Neutrophils (%) (Auto) 65.5 % (40.0-77.0) Lymphocytes (%) (Auto) 20.9 % (21.0-51.0) L Monocytes (%) (Auto) 11.0 % (3.0-13.0) Eosinophils (%) (Auto) 1.5 % (0.0-8.0) Basophils (%) (Auto) 0.5 % (0.0-5.0) Neutrophils # (Auto) 4.3 K/uL (1.8-7.7) Lymphocytes # (Auto) 1.4 K/uL (1.0-4.8) Monocytes # (Auto) 0.7 K/uL (0.1-1.0) Eosinophils # (Auto) 0.10 K/uL (0.00-0.70) Basophils # (Auto) 0.03 K/uL (0.00-0.20) Absolute Immature Granulocyte (auto 0.04 K/uL (0-1) Nucleated Red Blood Cells 0.0 % (0.0-0.19) Sodium Level 137 mmol/L (136-145) Potassium Level 3.5 mmol/L (3.5-5.1) Chloride Level 102 mmol/L (101-111) Carbon Dioxide Level 30 mmol/L (21-32) Blood Urea Nitrogen 15 mg/dL (7-18) Creatinine 1.0 mg/dL (0.5-1.3) Glomerular Filtration Rate Calc 93 mL/min (>90) Random Glucose 116 mg/dL (70-105) H Total Calcium 8.9 mg/dL (8.5-10.1) Total Creatine Kinase 71 U/L (21-232) # B-Type Natriuretic Peptide 188 pg/mL (0-100) H Urine Color COLORLESS (YELLOW) Urine Appearance CLEAR (CLEAR) Urine pH 6.5 (5.0-8.0) Urine Specific [place] 1.007 (1.001-1.031) Urine Protein 100 mg/dL (NEGATIVE) H Urine Glucose (UA) NEGATIVE mg/dL (NEGATIVE) Urine Ketones NEGATIVE mg/dL (NEGATIVE) Urine Occult Blood +- (TRACE) (NEGATIVE) H Urine Nitrate NEGATIVE (NEGATIVE) Urine Bilirubin NEGATIVE mg/dL (NEGATIVE) Urine Urobilinogen 0.2 mg/dL (0.2-1.0) Urine Leukocyte Esterase NEGATIVE Padmini/uL Urine RBC 2-5 /HPF (0-1) H Urine WBC 0-1 /HPF (0-1) Urine Bacteria None /HPF (None Seen) Urine Opiates Screen NEGATIVE (NEGATIVE) Urine Barbiturates Screen NEGATIVE (NEGATIVE) Urine Phencyclidine Screen NEGATIVE (NEGATIVE) Urine Amphetamines Screen NEGATIVE (NEGATIVE) Urine Benzodiazepines Screen NEGATIVE (NEGATIVE) Urine Cocaine Screen NEGATIVE (NEGATIVE) Urine Marijuana (THC) Screen NEGATIVE (NEGATIVE) Troponin I < 0.05 ng/mL (0.00-0.05) Influenza Type A Antigen Negative For Type A Influenza Type B Antigen Negative For Type B SARS-CoV-2, RNA, NAAT NEGATIVE SARS CoV-2 ED Course ED Course Orders Procedure Category Date Status Time Vital Signs Per CPOE 05/10/24 Transmitted Routine 20:24 12 Lead Ekg Tracing- EKG 05/10/24 Logged Technical 20:24 Oxygen By Nc/Pulse Ox CPOE 05/10/24 Transmitted 20:24 Maintain Iv CPOE 05/10/24 Transmitted 20:24 Iv Insertion CPOE 05/10/24 Transmitted 20:24 Cardiac Monitoring CPOE 05/10/24 Transmitted 20:24 Pulse Oximetry With CPOE 05/10/24 Transmitted Vs And Prn 20:24 Activity: Br W/Brp CPOE 05/10/24 Transmitted With Assist 20:24 Creatine Kinase, Total LAB 05/10/24 Complete 20:24 Urinalysis Profile LAB 05/10/24 Complete 20:24 Bedside Troponin-I LAB.ER 05/10/24 In Process (Poc) 20:24 Basic Metabolic Panel LAB 05/10/24 Complete 20:24 Cbc With Differential LAB 05/10/24 Complete 20:31 B-Type Natriuretic LAB 05/10/24 Complete Peptide 20:31 Chest 1vw RAD 05/10/24 Resulted 20:31 Aspirin 325mg Tab PHA 05/10/24 Complete (Aspirin 325mg Tab) 21:00 Troponin Poc Order LAB 05/10/24 Complete Only 20:31 Hydralazine 20mg Inj PHA 05/10/24 Complete (Apresoline 20mg In 21:00 Hydralazine 20mg Inj PHA 05/10/24 Complete (Apresoline 20mg In 21:30 Covid Rna Naat LAB 05/10/24 Complete 21:45 Influenza Type A & B, LAB 05/10/24 Complete Rapid 21:45 Labetalol 20mg Syg PHA 05/10/24 Complete (Trandate 20mg Syg) 22:30 Drug Screen Urine LAB 05/10/24 Complete 22:12 Admit Orders ADM 05/10/24 Transmitted 23:25 Consistent Carb DIET 05/11/24 Transmitted Breakfast Basic Metabolic Panel LAB 05/11/24 Verified 04:00 Cbc With Differential LAB 05/11/24 Verified 04:00 Magnesium LAB 05/11/24 Verified 04:00 Phosphorus LAB 05/11/24 Verified 04:00 Acetaminophen 325 Tab PHA 05/10/24 In Process (Tylenol 325mg Tab 23:30 Enoxaparin Sodium 40 PHA 05/11/24 In Process Mg/0.4 Ml (Lovenox) 09:00 Hydralazine 20mg Inj PHA 05/10/24 In Process (Apresoline 20mg In 23:30 Morphine 4mg Syg PHA 05/10/24 In Process (Morphine 4mg Syg) 23:30 Ondansetron 4mg Inj PHA 05/10/24 In Process (Zofran 4mg Inj) 23:30 Lisinopril 10mg PHA 05/11/24 In Process (Prinivil 10mg) 09:00 Metoprolol Tartrate PHA 05/11/24 In Process 25 Mg Tab (Lopressor 09:00 Activity: Ad Yina CPOE 05/10/24 Transmitted 23:28 Condition: CPOE 05/10/24 Transmitted 23:28 Nurse To Enter Home CPOE 05/10/24 Transmitted Medication 23:28 Oxygen By Nc/Pulse Ox CPOE 05/10/24 Transmitted 23:28 Vital Signs(Adult CPOE 05/10/24 Transmitted Hospitalist) 23:28 Current Medications Medications (Trade) Dose Ordered Sig/Caroline Route PRN Reason Start Time Stop Time Status Last Admin Dose Admin Acetaminophen (TYLenol 325MG TAB) 650 mg Q6H PRN PO TEMPERATURE GREATER THAN 101.5 05/10/24 23:30 06/09/24 23:29 Aspirin (Aspirin 325mg Tab) 325 mg ONCE ONCE PO 05/10/24 21:00 05/10/24 21:01 DC 05/10/24 21:19 Enoxaparin Sodium (Lovenox) 40 mg DAILY SQ 05/11/24 09:00 06/10/24 08:59 Hydralazine HCl (APRESOLine 20MG INJ) 10 mg Q6H PRN IV For:SBP above 160;DBP above 90 05/10/24 23:30 06/09/24 23:29 Hydralazine HCl (APRESOLine 20MG INJ) 20 mg ONCE ONCE IM 05/10/24 21:00 05/10/24 21:01 DC Hydralazine HCl (APRESOLine 20MG INJ) 20 mg ONCE ONCE IV 05/10/24 21:30 05/10/24 21:31 DC 05/10/24 21:19 Labetalol HCl (TRANdate 20MG SYG) 20 mg ONCE ONCE IV 05/10/24 22:30 05/10/24 22:31 DC 05/10/24 22:48 Lisinopril (Prinivil 10mg) 10 mg DAILY PO 05/11/24 09:00 06/10/24 08:59 Metoprolol Tartrate (loprESSOR) 12.5 mg BID PO 05/11/24 09:00 06/10/24 08:59 Morphine Sulfate (morPHINE 4MG SYG) 4 mg Q4H PRN IV SEVERE PAIN (7-10) 05/10/24 23:30 05/17/24 23:29 Ondansetron HCl (zoFRAN 4MG INJ) 4 mg Q6H PRN IV NAUSEA/VOMITING 05/10/24 23:30 06/09/24 23:29 Vital Signs Date Time Temp Pulse Resp B/P (MAP) Pulse Ox O2 Delivery O2 Flow Rate FiO2 05/10/24 23:22 92 27 150/91 97 Room Air* 0 21 05/10/24 23:05 93 18 159/103 96 Room Air* 0 21 05/10/24 22:48 200/113 05/10/24 22:12 107 15 184/98 98 Room Air* 0 21 05/10/24 20:42 112 21 207/128 97 Room Air* 0 21 05/10/24 20:14 98.4 116 20 210/132 96 Room Air Medical Decision Making [place] dDX: CHF versus STEMI versus NSTEMI versus hypertensive crisis versus sepsis All diagnostics and imaging interpreted by me unless otherwise specified EK05/10/2024; 2025 Sinus tachycardia 109 beats per minute, normal axis, normal intervals, nonspecific ST-T changes EKG shows no acute ischemic changes. Troponin within normal limits. Doubt STEMI. Doubt NSTEMI. Chest x-ray shows no acute cardiopulmonary pathology. Doubt pneumonia. Doubt CHF. BNP within normal limits. Doubt acute decompensated heart failure. Electrolytes within normal limits. Doubt electrolyte derangement. Patient's blood pressure critically high greater than 200 systolic. Patient given IV hydralazine and IV labetalol and blood pressure improved and symptoms improved. Patient is having hypertensive crisis. Upon re-evaluation patient, patient's blood pressure remains controlled the pa tient is uncertain sinus symptomatic. Discussed ED workup patient. Discussed versus benefits of admission versus discharge and close primary care follow up with patient. Patient states he does not have any outpatient follow-up and he is afraid of symptoms for return. Patient does need blood pressure controlled. We will place patient in observation. Invited and answered all questions prior to admission. DX & DISP Disposition: Observation Decision to Admit Date: May 10, 2024 Decision to Admit Time: 23:36 Departure Impression: Primary Impression: Hypertensive crisis Critical Time: 30 minutes Condition: Stable Assign Patient to: Dr ALCOCER Referrals: SELF,REFERRAL (PCP) Time of Disposition: 23:37 MACKENZIE COSME DO May 10, 2024 23:37
--- NOTE | 2024-05-10 23:42 | HP ---
History of Present Illness Reason for Visit: Palpitations Referring MD: Alex RIOS History of Present Illness Mr. Enrique is a 48-year-old male that was seen and examined today on 05/10/2024. Patient is a good historian and personal health. Patient reports that he came to the emergency department with a chief complaint of palpitations. Onset was today at 5:30 p.m.. Location is to chest. Duration is on and off. Character is described as" like if I am winded. "Symptoms were alleviated with rest. 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 Patient denies any associated chest pain. Patient has a similar episode three months ago. When patient arrived to the emergency department blood pressure 210/132 mmHg which responded well to 1 of 10 mg of hydralazine and 20 mg of labetalol. CBC is unremarkable, troponin unremarkable, chest x-ray unremarkable, chemistry unremarkable, urinalysis unremarkable, urine toxicology unremarkable. Emergency room physician recommended that patient be admitted with a diagnosis of hypertensive. EKG showed sinus tachycardia at 1:09 a.m.. 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 Patient follows Dr. Ellis in the outpatient setting. Patient states he is going to make an appointment with Cardiology after being discharged. Past Medical History Patient History: Alzheimer's disease FATHER, Onset:60 years & older Asthma Cardiovascular disease BROTHER, Onset:30's - 40 BROTHER, Onset:30's - 40 Chronic obstructive pulmonary disease FATHER, Onset:60 years & older Diabetes mellitus BROTHER, Onset:40's - 50 Family history: Hypertension ADDITIONAL PAST MEDICAL HISTORY: [Hypertension, prediabetes, LESLEE, GERD, hyperlipidemia] SOCIAL HISTORY: [Negative for smoking, alcohol use, drug use. Patient lives with his brother Marin Enrique. Patient has good access to health care through his insurance. Patient denies difficulty pain is bills. Patient is typically independent of all his ADLs. 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 Dyspnea, Edema, Lt Headedness, Other Gastrointestinal: No: Nausea, Vomiting, Abdominal Pain, Diarrhea, Constipation, Melena, Hematochezia, Other Genitourinary: No Dysuria, No Frequency, No Incontinence, No Hematuria, No Retention, No Other Musculoskeletal: No: other, neck pain, shoulder pain, arm pain, back pain, hand pain, leg pain, foot pain Skin: No Urticaria, No Rash, No Other Neurological: No: Weakness, Numbness, Incoordination, Change in speech, Confusion, Seizures, Other Allergies: Coded Allergies: No Known Drug Allergies (Unverified Allergy, Unknown, 05/19/15) Scheduled Aspirin (Aspirin 81MG Chew Tab), 81 MG PO DAILY, (Reported) Losartan/Hydrochlorothiazide (Losartan-Hctz 100-12.5 mg Tab), 1 EACH PO DAILY Metformin HCl (Metformin HCl), 500 MG PO BIDAC, (Reported) Metoprolol Tartrate (Metoprolol Tartrate), 100 MG PO BID Pantoprazole Sodium (Protonix), 40 MG PO DAILY Simvastatin (Simvastatin), 20 MG PO HS Verapamil HCl (Verapamil HCl), 360 MG PO DAILY Exam Vital Signs Vital Signs Date Time Temp Pulse Resp B/P (MAP) Pulse Ox O2 Delivery O2 Flow Rate FiO2 05/10/24 23:22 92 27 150/91 97 Room Air* 0 21 05/10/24 20:14 98.4 General Appearance: Alert, Oriented X3, Cooperative, No acute distress HEENT: Atraumatic, EOMI Respiratory: Clear to auscultation, Normal air movement, NL respiratory effort Cardiovascular: Regular rate, Regular rhythm, Normal S1, Normal S2 Abdominal: Normal bowel sounds, Soft, No tenderness Extremities: No edema Skin: No rashes, No breakdown, No significant lesion Neuro: Normal speech, Strength at 5/5 X4 ext, Sensation intact, Cranial nerves 3-12 NL Psych/Mental Status: Mental status NL, Mood NL, Thoughts/Content NL Assessment/Plan ASSESSMENT: [ Hypertensive urgency, POA Palpitations, POA Prediabetes LESLEE GERD Hyperlipidemia ] PLAN: [ Admit patient to medical floor as inpatient status. Hydralazine 10 mg IV every 4 hours for systolic blood pressure greater than 160 mmHg Start lisinopril 10 mg by mouth once daily Resume patient's home medication of verapamil 360 mg by mouth once daily Patient states that he takes losartan 50 mg twice daily at home, hydrochlorothiazide 25 mg by mouth once daily, and verapamil 360 mg by mouth once daily for blood pressure control. Check hemoglobin A1c in a.m., consider starting sliding scale if [id number] greater than 7.5% CPAP per home settings GI prophylaxis, famotidine 20 mg by mouth once daily. DVT prophylaxis, Lovenox 40 mg subcutaneously once daily. ADVANCED CARE PLANNING 1. Which of the following were discussed? Hospice Care - Yes Therapeutic options - Yes Advance Directives - Yes- patient states he does not have any advance directives in place at this time, however his brother can make decisions for him if he becomes unable. Other discussions - patient wishes to remain a full code at this time 2. Discussed with who? Patient 3. Voluntary nature of this service was explained to the patient? Yes 4. Amount of time spent - __ 16 minutes 5. Reviewed by Physician? (if this service was performed by NPP) Yes This document was generated in part using voice recognition software, occasional wrong word or sound alike substitutions may have occurred due to the inherent limitations of voice recognition software. Read the chart carefully and recognize using context, where the substitutions have occurred. Although every effort was made to edit the content, high school vice principal and typing errors may occur ATTESTATION BY PHYSICIAN I have seen and examined the patient. I reviewed the documentation, medical decision making, and treatment plan as noted by the mid-level provider above. I agree with the findings and plan of care. TATO CHRISTINA [facility] May 10, 2024 23:42
[2024-05-11] VITALS (10 sets, daily range): BP systolic 136–155; BP diastolic 81–97; PULSE 85–100; RESP 16–20; TEMP 97.7–98.3; O2SAT 93–98
[2024-05-11] MEDS: hydrALAZine 20MG/ML VIAL IV PRN (00:09)
--- NOTE | 2024-05-11 01:07 | NUR ---
MEDICATION RECONCILIATION NOT DONE AT THIS TIME. PT EDUCATED ON THE IMPORTANCE OF MED RECONCILIATION. PT VERBIZLIES UNDERSTANDING. PT IS GOING TO CALL FAMILY MEMBER TO POSSIBLY BRING HOME MEDS IN MORNING
--- NOTE | 2024-05-11 01:17 | NUR ---
REPORT GIVEN TO FARTUN MIXON AT THIS TIME
--- NOTE | 2024-05-11 01:30 | NUR ---
ADMIT PT ADMITTED TO ROOM 324, AAOX4, AMBULATORY WITHOUT ANY ASSIST. DENIES ANY CP NOR SOB. ADMISSION CARE DONE. ADMISSION V/S MONITORED, STABLE. ADMISSION ASSESSMENT DONE, PLEASE REFER TO CHART. ADMISSION DATA BASE COMPLETED. ORIENTED TO ROOM AND UNIT. IN FOR MORE CARE AND MANAGEMENT. Addendum: 05/11/24 at 0157 by FARTUN WEBBER RN RN Amended: Links added.
[2024-05-11 05:26] LABS: BASOPHILS # (AUTO) 0.04 K/uL (0.00-0.20); BASOPHILS % (AUTO) 0.6 % (0.0-5.0); EOSINOPHILS # (AUTO) 0.14 K/uL (0.00-0.70); HEMATOCRIT 41.8 % (42-54); IMMATURE GRANULOCYTE ABSOLUTE 0.02 K/uL (0-1); LYMPHOCYTES # (AUTO) 1.8 K/uL (1.0-4.8); LYMPHOCYTES % (AUTO) 24.8 % (21.0-51.0); MEAN CORPUSCULAR HEMOGLOBIN 26.2 pg (27.0-33.0); MEAN CORPUSCULAR HGB CONC 32.1 g/dL (32.0-36.0); MEAN CORPUSCULAR VOLUME 81.8 fL (79-99); MONOCYTES # (AUTO) 0.9 K/uL (0.1-1.0); MONOCYTES % (AUTO) 12.9 % (3.0-13.0); NEUTROPHILS # (AUTO) 4.2 K/uL (1.8-7.7); NEUTROPHILS % (AUTO) 59.4 % (40.0-77.0); PLATELET COUNT (AUTO) 179 K/uL (130-400); RED BLOOD CELL COUNT(AUTO) 5.11 MIL/uL (4.50-6.20); RED CELL DISTRIBUTION WIDTH 15.7 % (11.0-15.5); WHITE BLOOD COUNT (AUTO) 7.1 K/uL (4.8-10.8)
[2024-05-11 05:36] LABS: MAGNESIUM 1.5 mg/dL (1.80-2.40); PHOSPHORUS 4.6 mg/dL (2.5-4.9); POTASSIUM 3.9 mmol/L (3.5-5.1)
[2024-05-11 05:55] LABS: HEMOGLOBIN A1C 6.3 % (4.0-6.0)
--- NOTE | 2024-05-11 06:29 | NUR ---
ROUNDS PT RESTING WELL, STILL ON CPAP, ASLEEP. NO DISTRESS NOTED. KEPT COMFORTABLE IN BED. FOR MORE CARE.
--- NOTE | 2024-05-11 06:36 | EKG ---
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 : [id number] Requested By: MACKENZIE COSME Order Number: [id number] Reading MD: Felicia Cortes Measurements Intervals [place] Rate: 109 P: 92 VA: 181 QRS: 0 QRSD: 97 T: 21 QT: 335 QTc: 453 Interpretive Statements Sinus tachycardia Multiple ventricular premature complexes Probable anteroseptal infarct, old Compared to ECG 04/10/2024 11:30:57 Ventricular premature complex(es) now present Sinus rhythm no longer present First degree AV block no longer present Myocardial infarct finding still present Electronically Signed On 05-11-2024 10:17:55 DANCE MASTER by Felicia Cortes Please click the below link to view image of tracing.
[2024-05-11] MEDS: VERAPAMIL HCL 360 MG PO SCH (09:00)
[2024-05-11] MEDS ORDERED: metoPROLOL tartRATE 25 MG TAB PO SCH (09:00)
[2024-05-11] MEDS: LISINOPRIL 10 MG TABLET PO SCH (09:32)
[2024-05-11] MEDS: ENOXAPARIN SODIUM 40 MG/0.4 ML SYRINGE SQ SCH (09:32)
[2024-05-11] MEDS ORDERED: PHARMACY COMMUNICATION MISC SCH (11:00)
[2024-05-11] MEDS ORDERED: PoTASSium chloRIDE 20MEQ/100ML 100 ML IV PRN (11:30)
[2024-05-11] MEDS ORDERED: PoTASSium chl 10% ELIXIR 20MEQ 20 MEQ/15 ML UDCUP PO PRN (11:30)
--- NOTE | 2024-05-11 14:16 | PN ---
[facility] PROGRESS NOTE Date of Service: May 11, 2024 Time of Service: 14:16 SUBJECTIVE: 05/11/2024 The patient was seen this morning at the bedside. patient was comfortable denied any palpitations or chest pain or shortness of breath. afebrile heart rate 86 respiration rate 18 on room air blood pressure 136/85. Remarkable labs: CBC unremarkable electrolytes within normal limits magnesium 1.5 . We will begin magnesium protocol. we will order 2D echo due to findings on EKG which showed premature complexes in the setting of hypertensive crisis and a possible old myocardial infarction. REVIEW OF SYSTEMS CONSTITUTIONAL: Denies fevers, chills, or night sweats. No unintentional weight loss reported. NEUROLOGICAL: Denies headache, amaurosis fugax, motor weakness, sensory deficit, vertigo/spinning sensation, gait abnormalities, or tremors. ENT: No hearing loss, otalgia, otorrhea, rhinitis, rhinorrhea, hoarseness, or sore throat. CARDIOVASCULAR: Denies any exertional angina, dyspnea on exertion, orthopnea, paroxysmal nocturnal dyspnea, palpitations, life-threatening arrhythmias, claudication. PULMONARY: Denies any shortness of breath, cough, phlegm/sputum, hemoptysis, pleuritic chest pain. SLEEP: Denies morning headaches, daytime somnolence or napping. Denies difficulty falling asleep, staying asleep, waking from sleep. Denies knowledge of snoring. GASTROINTESTINAL: Denies any type of dysphagia to either liquids or solids. Denies nausea, vomiting, pyrosis, early satiety, abdominal pain, diarrhea, constipation, or changes in stool consistency or caliber. Denies coffee-ground emesis, hematemesis, hematochezia, or melanotic stools. GENITOURINARY: Denies frequency, urgency, nocturia, hematuria or incontinence (Storage/Irritative symptoms.) Low urinary stream, straining to void, urinary intermittency or hesitancy, splitting of the voiding stream, terminal dribbling. ENDOCRINOLOGIC: Denies polyuria, polydipsia, polyphagia or heat/cold intolerances. HEMATOLOGIC: Denies thrombophilia/previous clots, or coagulopathy/bleeding disorders. ONCOLOGIC: Denies personal history of malignancy. DERMATOLOGIC: Denies rashes or pruritus. PSYCHIATRIC: Denies any suicidal or homicidal ideation. Denies hallucinations. PHYSICAL EXAM GENERAL APPEARANCE: The patient is awake, alert, and oriented, in no acute cardiopulmonary distress. NEUROLOGICAL: Cranial nerves II-XII grossly intact. Motor is 5/5 in bilateral upper and lower extremities proximal to distal. No sensory deficits. HEENT: Face is symmetric. Pupils are equal and reactive. Extraocular movements are intact. NECK: Supple. No JVD. No thyromegaly. No submental, submandibular, pre-/po stauricular, occipital or supraclavicular lymphadenopathy. CHEST: Normal chest expansion. No Telemetry. LUNGS: Absence of any rales, rhonchi or any wheezing. CARDIOVASCULAR: Regular. S1 and S2 normal. No appreciable rubs, murmurs or gallops. ABDOMEN: Soft, nontender, and nondistended. There is no rebound, voluntary guarding, or rigidity. : Deferred. No Yeager. EXTREMITIES: Non-edematous and not cyanotic. No clubbing. Good capillary refill. SKIN: No skin breakdown. Vital Signs (last 8hr) Date Time Temp Pulse Resp B/P (MAP) Pulse Ox O2 Delivery O2 Flow Rate FiO2 05/11/24 12:05 100 20 05/11/24 11:44 98.2 92 19 147/95 97 05/11/24 08:18 98.2 86 18 136/85 97 LABS: Laboratory: Test 05/11/24 11:03 05/11/24 05:12 05/10/24 21:49 05/10/24 21:13 Range/Units Whole Blood Glucose 150 H 70-110 MG/DL White Blood Count 7.1 4.8-10.8 K/uL Red Blood Count 5.11 4.50-6.20 MIL/uL Hemoglobin 13.4 L 14.0-18.0 g/dL Hematocrit 41.8 L 42-54 % Mean Corpuscular Volume 81.8 79-99 fL Mean Corpuscular Hemoglobin 26.2 L 27.0-33.0 pg Mean Corpuscular Hemoglobin Concent 32.1 32.0-36.0 g/dL Red Cell Distribution Width 15.7 H 11.0-15.5 % Platelet Count 179 130-400 K/uL Mean Platelet Volume 11.0 H 7.5-10.5 fL Immature Granulocyte % (Auto) 0.3 0-1 % Neutrophils (%) (Auto) 59.4 40.0-77.0 % Lymphocytes (%) (Auto) 24.8 21.0-51.0 % Monocytes (%) (Auto) 12.9 3.0-13.0 % Eosinophils (%) (Auto) 2.0 0.0-8.0 % Basophils (%) (Auto) 0.6 0.0-5.0 % Neutrophils # (Auto) 4.2 1.8-7.7 K/uL Lymphocytes # (Auto) 1.8 1.0-4.8 K/uL Monocytes # (Auto) 0.9 0.1-1.0 K/uL Eosinophils # (Auto) 0.14 0.00-0.70 K/uL Basophils # (Auto) 0.04 0.00-0.20 K/uL Absolute Immature Granulocyte (auto 0.02 0-1 K/uL Nucleated Red Blood Cells 0.0 0.0-0.19 % Sodium Level 141 136-145 mmol/L Potassium Level 3.9 3.5-5.1 mmol/L Chloride Level 104 101-111 mmol/L Carbon Dioxide Level 32 21-32 mmol/L Blood Urea Nitrogen 14 7-18 mg/dL Creatinine 1.0 0.5-1.3 mg/dL Glomerular Filtration Rate Calc 93 >90 mL/min Random Glucose 117 H 70-105 mg/dL Hemoglobin A1c 6.3 H 4.0-6.0 % Estimated Average Glucose (eAG) 134 H 70-126 mg/dL Total Calcium 8.5 8.5-10.1 mg/dL Phosphorus Level 4.6 2.5-4.9 mg/dL Magnesium Level 1.50 L 1.80-2.40 mg/dL Influenza Type A Antigen Negative For Type A NEGATIVE Influenza Type B Antigen Negative For Type B NEGATIVE SARS-CoV-2, RNA, NAAT NEGATIVE SARS CoV-2 NEGATIVE Troponin I < 0.05 0.00-0.05 ng/mL Test 05/10/24 20:45 05/10/24 20:41 Range/Units Urine Color COLORLESS YELLOW Urine Appearance CLEAR CLEAR Urine pH 6.5 5.0-8.0 Urine Specific [place] 1.007 1.001-1.031 Urine Protein 100 H NEGATIVE mg/dL Urine Glucose (UA) NEGATIVE NEGATIVE mg/dL Urine Ketones NEGATIVE NEGATIVE mg/dL Urine Occult Blood +- (TRACE) H NEGATIVE Urine Nitrate NEGATIVE NEGATIVE Urine Bilirubin NEGATIVE NEGATIVE mg/dL Urine Urobilinogen 0.2 0.2-1.0 mg/dL Urine Leukocyte Esterase NEGATIVE NEGATIVE Padmini/uL Urine RBC 2-5 H 0-1 /HPF Urine WBC 0-1 0-1 /HPF Urine Bacteria None None Seen /HPF Urine Opiates Screen NEGATIVE NEGATIVE Urine Barbiturates Screen NEGATIVE NEGATIVE Urine Phencyclidine Screen NEGATIVE NEGATIVE Urine Amphetamines Screen NEGATIVE NEGATIVE Urine Benzodiazepines Screen NEGATIVE NEGATIVE Urine Cocaine Screen NEGATIVE NEGATIVE Urine Marijuana (THC) Screen NEGATIVE NEGATIVE Total Creatine Kinase 71 # 21-232 U/L B-Type Natriuretic Peptide 188 H 0-100 pg/mL Current Medications Medications (Trade) Dose Ordered Sig/Caroline Route PRN Reason Start Time Stop Time Status Last Admin Dose Admin Acetaminophen (TYLenol 325MG TAB) 650 mg Q6H PRN PO TEMPERATURE GREATER THAN 101.5 05/10/24 23:30 06/09/24 23:29 Enoxaparin Sodium (Lovenox) 40 mg DAILY SQ 05/11/24 09:00 06/10/24 08:59 05/11/24 09:32 40 MG Home Med (Home Medication) DAILY PO 05/11/24 09:00 06/10/24 08:59 Hydralazine HCl (APRESOLine 20MG INJ) 10 mg Q6H PRN IV For:SBP above 160;DBP above 90 05/10/24 23:30 06/09/24 23:29 05/11/24 00:09 10 MG Lisinopril (Prinivil 10mg) 10 mg DAILY PO 05/11/24 09:00 06/10/24 08:59 05/11/24 09:32 10 MG Magnesium Sulfate 50 ml @ 0 mls/hr PROTOCOL PRN IV Hypomagnesemia 05/11/24 11:30 06/10/24 11:29 Metoprolol Tartrate (loprESSOR) 12.5 mg BID PO 05/11/24 09:00 05/10/24 23:50 DC Morphine Sulfate (morPHINE 4MG SYG) 4 mg Q4H PRN IV SEVERE PAIN (7-10) 05/10/24 23:30 05/17/24 23:29 Ondansetron HCl (zoFRAN 4MG INJ) 4 mg Q6H PRN IV NAUSEA/VOMITING 05/10/24 23:30 06/09/24 23:29 Pharmacy Profile Note (Pharmacy Communication) 1 each AD MISC 05/11/24 11:00 05/11/24 11:18 DC Potassium Chloride 100 ml @ 100 mls/hr AD PRN IV POTASSIUM PROTOCOL 05/11/24 11:30 06/10/24 11:29 Potassium Chloride (K-Dur/Klor-Con 20meq) 20 meq AD PRN PO POTASSIUM PROTOCOL 05/11/24 11:30 06/10/24 11:29 Potassium Chloride (KCl 10% Elixir 20meq/15ml) 20 meq AD PRN PO POTASSIUM PROTOCOL 05/11/24 11:30 06/10/24 11:29 DIAGNOSTICS / RADIOLOGY: [ ] ASSESSMENT: Hypertensive urgency, POA Palpitations, POA Prediabetes LESLEE Gastroesophageal reflux disease Hyperlipidemia PLAN: Patient on Med surge floor Continue lisinopril 10 mg p.o. q.d. CPAP per home settings GI prophylaxis famotidine 20 mg p.o. q.d. DVT prophylaxis Lovenox 40 mg subQ q.d. Check 2D echo results Replace electrolytes as needed per protocol Hydralazine 10 mg IV q.4 hours for systolic blood pressure greater than 160 ATTESTATION BY PHYSICIAN I have seen and examined the patient. I reviewed the documentation, medical decision making, and treatment plan as noted by the resident provider above. I agree with the findings and plan of care. Ramon Marshall MD, GERARDO MD May 11, 2024 14:16
--- NOTE | 2024-05-11 14:58 | NUR ---
DCP Pt awake, alert, oriented x3. Pt lives with brother Marin Enrique [phone], Pt able to perform ADLs currently works at [employer]. Anticipates discharge is for home. Addendum: 05/11/24 at 1500 by EMILIA RODRIGUEZ RN CM Amended: Links added.
[2024-05-11] MEDS ORDERED: PANT40TA54 PO (15:24)
[2024-05-11] MEDS ORDERED: LOSA50TA64 PO (15:26)
[2024-05-11] MEDS ORDERED: VERA240C3 PO (15:28)
[2024-05-11] MEDS ORDERED: HYDR25TA PO (15:32)
[2024-05-11] MEDS ORDERED: SIMV-43 PO (15:32)
[2024-05-11] MEDS ORDERED: ASPI-1005 PO (15:32)
[2024-05-11] MEDS ORDERED: METF-446 PO (15:32)
[2024-05-11] MEDS: MAGNESIUM 2GM PREMIX 50ML 50 ML IV PRN (20:17)
--- NOTE | 2024-05-11 20:20 | NUR ---
MEDS SHIFT ASSESSMENT DONE, PLEASE REFER TO CHART. DENIES ANY PALPITATIONS NOR ANY PAINS AT THIS TIME. NO DISTRESS NOTED. MG REPLACEMENT HUNG PER PROTOCOL. KEPT RESTED.
[2024-05-12] VITALS (8 sets, daily range): BP systolic 147–172; BP diastolic 62–111; PULSE 83–107; RESP 18–20; TEMP 97.6–98.5; O2SAT 93–99
--- NOTE | 2024-05-12 01:05 | NUR ---
BP PT JUST HAD TAKEN A SHOWER, TOLERATED ACTIVITY WELL. RE-CHECKED DY=132/111, HR=89 BPM. PT DENIES ANY COMPLAINTS. NO DISTRESS NOTED. MEDICATED WITH HYDRALAZINE IV. ENCOURAGED TO RELAX AND REST. WILL RE-ASSESS PT.
--- NOTE | 2024-05-12 06:10 | NUR ---
ROUNDS PT SLEPT AT INTERVALS DURING THE SHIFT. NO CONCERNS VERBALIZED. NO DISTRESS NOTED. KEPT RESTED AND COMFORTABLE IN BED. CALL LIGHT WITHIN REACH. FOR MORE CARE.
[2024-05-12 06:12] LABS: BASOPHILS # (AUTO) 0.03 K/uL (0.00-0.20); BASOPHILS % (AUTO) 0.4 % (0.0-5.0); EOSINOPHILS # (AUTO) 0.22 K/uL (0.00-0.70); HEMATOCRIT 41.9 % (42-54); IMMATURE GRANULOCYTE ABSOLUTE 0.03 K/uL (0-1); LYMPHOCYTES # (AUTO) 1.9 K/uL (1.0-4.8); LYMPHOCYTES % (AUTO) 26.3 % (21.0-51.0); MEAN CORPUSCULAR HEMOGLOBIN 25.9 pg (27.0-33.0); MEAN CORPUSCULAR HGB CONC 31.7 g/dL (32.0-36.0); MEAN CORPUSCULAR VOLUME 81.5 fL (79-99); MONOCYTES # (AUTO) 0.9 K/uL (0.1-1.0); MONOCYTES % (AUTO) 12.3 % (3.0-13.0); NEUTROPHILS # (AUTO) 4.2 K/uL (1.8-7.7); NEUTROPHILS % (AUTO) 57.6 % (40.0-77.0); PLATELET COUNT (AUTO) 181 K/uL (130-400); RED BLOOD CELL COUNT(AUTO) 5.14 MIL/uL (4.50-6.20); RED CELL DISTRIBUTION WIDTH 15.9 % (11.0-15.5); WHITE BLOOD COUNT (AUTO) 7.2 K/uL (4.8-10.8)
[2024-05-12 06:29] LABS: CREATININE 1.2 mg/dL (0.5-1.3); MAGNESIUM 2.1 mg/dL (1.80-2.40); POTASSIUM 3.7 mmol/L (3.5-5.1)
[2024-05-12] MEDS: PoTASSium chloRIDE 20MEQ ER 20 MEQ ERTAB PO PRN (09:32)
--- NOTE | 2024-05-12 13:33 | HMCSR ---
APPROVED REPORT EXAM: Two-dimensional and M-mode echocardiogram with Doppler and color Doppler. INDICATION ICD: Rule out structural heart disease 2D Dimensions RVDd3.7 cmLVEF(%)32.5 (>50%)LA ESV INDEX (4CH)44.00 mL/m2 IVSd1.4 (0.7-1.1cm)FS(%)15 % LVDd5.2 (3.8-5.6cm)LA (2D)5.5 (1.6-4.0cm) PWd1.4 (0.7-1.1cm)Ao Root(2D)3.4 (2.0-3.7cm) IVSs1.1 cmLVOT diam2.4 (1.8-2.4cm) LVDs4.4 (2.5-4.0cm) PWs1.5 cm M-Mode Dimensions EPSS1.5 cm LA (MM)5.9 (1.6-4.0cm) Ao Root(MM)3.0 (2.0-3.7cm) Aortic Valve AoV VTI0.2 mAo Mean GR3.0 mmHgLVOT VTI0.15 m JENNIE (VMAX)3.0 cm2AVA (VTI) 3.0 cm2 Mitral Valve MV E Vmax87.8 cm/sDECEL Dxvj137 ms P 1/2 T49 ms MVA (PHT)4.5 cm2 TDI E/E' Dqlaon13.9E/E' Ikqwwvv73.3 Medial E' Peak V4.20 cm/sLateral E' Peak V8.50 cm/s Pulmonary Valve PV VTI0.21 mPV Mean GR2 mmHg Tricuspid Valve TR Vmax1.6 m/sRAP (EST) 15 fcPzYHRV54.6 mmHg TR Peak GR10.6 mmHg Left Ventricle Left ventricular cavity size is normal. There is normal LV segmental wall motion. Moderate concentric left ventricular hypertrophy. LVEF is 55-60%. E/A flow is fused. Right Ventricle The right ventricle is normal size. The right ventricular systolic function is normal. Atria The left atrium is mildly dilated. The right atrium is mildly dilated. Aortic Valve The aortic valve is normal in structure. No aortic regurgitation is present. There is no aortic valvu lar stenosis. Mitral Valve The mitral valve is normal in structure. There is no mitral valve regurgitation noted. There is no mi tral valve stenosis. Tricuspid Valve The tricuspid valve is normal in structure. There is trace of tricuspid valve regurgitation noted. Pulmonic Valve The pulmonary valve is normal in structure. There is no pulmonic valvular regurgitation. Great Vessels The aortic root is normal in size. IVC is dilated and collapses <50% with inspiration. Pericardium There is no pericardial effusion. Other Information Quality : Technically difficult due to body habitus Conclusion LVEF is 55-60%. There is normal LV segmental wall motion. Moderate concentric left ventricular hypertrophy. The left atrium is mildly dilated. There is no pericardial effusion.
--- NOTE | 2024-05-12 15:39 | DS ---
Discharge Summary Hospital Course Summary: This is a 48-year-old male patient who presented to the emergency department with a chief complaint of palpitations. Patient describes pain as being short of breath and symptoms were alleviated with rest. 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 Patient denies any associated chest pain. Patient has a similar episode three months ago. When patient arrived to the emergency department blood pressure 210/132 mmHg which responded well to hydralazine and labetalol. CBC is unremarkable, troponin unremarkable, chest x-ray unremarkable, chemistry unremarkable, urinalysis unremarkable, urine toxicology unremarkable. Patient was admitted for hypertensive urgency. EKG showed sinus tachycardia. 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 Patient follows Dr. Ellis in the outpatient setting. Patient states he is going to make an appointment with Cardiology after being discharged. A 2D echo due to findings on EKG which showed premature complexes in the setting of hypertensive crisis and a possible old myocardial infarction. 2D echo results showed left ventricle ejection fraction of 55-60% and moderate concentric left ventricular hypertrophy. There is a normal left ventricle segmental wall motion, the left atrium is mildly dilated and there is no pericardial effusion. Today the patient is afebrile and hemodynamically stable and will be discharged home. Patient has been advised to follow up with Cardiology in 1-2 weeks and to follow up with his PCP in 3-5 days. Advised patient to return to the emergency department if he experiences chest pain. Procedure(s): [address] [id number] IMAGING REPORT Signed PATIENT: MADISON SMITH MR#: [id number] : 1975 SEX: M AGE: 48 LOCATION: ED ORDER 32 STATUS: REG ER REPORT#: [id number] SERVICE 30 REASON: cp ORDERING PHYSICIAN: MACKENZIE COSME DO PROCEDURE: CXR1VW - CHEST 1VW Exam Type: CHEST 1VW Clinical Information: cp Comparison: None Findings: The lungs are clear of infiltrates. The heart is normal in size. The bony and soft tissue structures of the chest are unremarkable. Impression: Clear lungs. DICTATED BY: KAMALJIT GANN MD DATE: 05/10/242101 ELECTRONICALLY SIGNED BY: KAMALJIT GANN MD DATE: 05/10/242105 [place] [address] [id number] IMAGING REPORT Signed PATIENT: MADISON SMITH MR#: [id number] : 1975 SEX: M AGE: 48 LOCATION: [facility] ORDER 44 STATUS: ADM IN REPORT#: [id number] SERVICE 40 REASON: Rule out structural heart disease ORDERING PHYSICIAN: BRANDI ACE MD PROCEDURE: ECHO CMP - ECHO 2-D COMPLETE APPROVED REPORT EXAM: Two-dimensional and M-mode echocardiogram with Doppler and color Doppler. INDICATION ICD: Rule out structural heart disease 2D Dimensions RVDd 3.7 cm LVEF(%) 32.5 (>50%) LA ESV INDEX (4CH) 44.00 mL/m2 IVSd 1.4 (0.7-1.1cm) FS(%) 15 % LVDd 5.2 (3.8-5.6cm) LA (2D) 5.5 (1.6-4.0cm) PWd 1.4 (0.7-1.1cm) Ao Root(2D) 3.4 (2.0-3.7cm) IVSs 1.1 cm LVOT diam 2.4 (1.8-2.4cm) LVDs 4.4 (2.5-4.0cm) PWs 1.5 cm M-Mode Dimensions EPSS 1.5 cm LA (MM) 5.9 (1.6-4.0cm) Ao Root(MM) 3.0 (2.0-3.7cm) Aortic Valve AoV VTI 0.2 m Ao Mean GR 3.0 mmHg LVOT VTI 0.15 m JENNIE (VMAX) 3.0 cm2 JENNIE (VTI) 3.0 cm2 Mitral Valve MV E Vmax 87.8 cm/s DECEL Time 148 ms P 1/2 T 49 ms MVA (PHT) 4.5 cm2 TDI E/E' Medial 20.9 E/E' Lateral 10.3 Medial E' Peak V 4.20 cm/s Lateral E' Peak V 8.50 cm/s Pulmonary Valve PV VTI 0.21 m PV Mean GR 2 mmHg Tricuspid Valve TR Vmax 1.6 m/s RAP (EST) 15 mmHg RVSP 25.6 mmHg TR Peak GR 10.6 mmHg Left Ventricle Left ventricular cavity size is normal. There is normal LV segmental wall motion. Moderate concentric left ventricular hypertrophy. LVEF is 55-60%. E/A flow is fused. Right Ventricle The right ventricle is normal size. The right ventricular systolic function is normal. Atria The left atrium is mildly dilated. The right atrium is mildly dilated. Aortic Valve The aortic valve is normal in structure. No aortic regurgitation is present. There is no aortic valvular stenosis. Mitral Valve The mitral valve is normal in structure. There is no mitral valve regurgitation noted. There is no mitral valve stenosis. Tricuspid Valve The tricuspid valve is normal in structure. There is trace of tricuspid valve regurgitation noted. Pulmonic Valve The pulmonary valve is normal in structure. There is no pulmonic valvular regurgitation. Great Vessels The aortic root is normal in size. IVC is dilated and collapses <50% with inspi ration. Pericardium There is no pericardial effusion. Other Information Quality : Technically difficult due to body habitus Conclusion LVEF is 55-60%. There is normal LV segmental wall motion. Moderate concentric left ventricular hypertrophy. The left atrium is mildly dilated. There is no pericardial effusion. DICTATED BY: DASH WOOD MD DATE: 05/12/24 0948 ELECTRONICALLY SIGNED BY: DASH WOOD MD DATE: 05/12/24 1330 Assessment/Plan: ASSESSMENT: Hypertensive urgency, POA Palpitations, POA Prediabetes LESLEE Gastroesophageal reflux disease Hyperlipidemia Discharge Instructions: Follow up with PCP in 3-5 days. Follow up with Cardiology in 1-2 weeks. Home Medications: Reported Medications Hydrochlorothiazide (Hydrochlorothiazide) 25 Mg Tablet, 1 TAB PO DAILY for 30 Days, #30 TAB 0 Refills 05/11/24 Aspirin (ASPIRIN 81MG CHEW TAB) 81 Mg Tab.chew, 1 TAB PO DAILY for 30 Days, #30 TAB 0 Refills 05/11/24 Metformin HCl (Metformin HCl) 1,000 Mg Tablet, 1 TAB PO BID for 30 Days, #60 TAB 0 Refills 05/11/24 Simvastatin (Simvastatin) 20 Mg Tablet, 1 TAB PO HS for 30 Days, #30 TAB 0 Refills 05/11/24 Verapamil HCl (Verapamil Sr) 240 Mg Cap24h.pel, 360 MG PO DAILY PRN for daily 05/11/24 Losartan Potassium (Losartan Potassium) 50 Mg Tablet, 50 MG PO BID PRN for INCREASED BLOOD PRESSURE, TAB 05/11/24 Pantoprazole Sodium (Pantoprazole Sodium) 40 Mg Tablet.dr, 40 MG PO DAILY for reflux, TAB 05/11/24 Discontinued Reported Medications Aspirin (ASPIRIN 81MG CHEW TAB) 81 Mg Tab.chew, 81 MG PO DAILY, TAB.CHEW 06/15/23 Metformin HCl (Metformin HCl) 500 Mg Tablet, 500 MG PO BIDAC, TAB 05/19/15 Discontinued Scripts Verapamil HCl (Verapamil HCl) 360 Mg Cap24h.pel, 360 MG PO DAILY for 30 Days, #30 MG Prov:MICHAEL OSORIO NP 12/12/23 Simvastatin (Simvastatin) 20 Mg Tablet, 20 MG PO HS, #30 TAB 0 Refills Prov:ESTHELA ALCOCER MD 06/17/23 Metoprolol Tartrate (Metoprolol Tartrate) 100 Mg Tablet, 100 MG PO BID for HTN for 30 Days, #60 TAB 0 Refills Prov:ESTHELA ALCOCER MD 06/17/23 Losartan/Hydrochlorothiazide (Losartan-Hctz 100-12.5 mg Tab) 100 Mg-12.5 Mg Tablet, 1 EACH PO DAILY, #30 TAB 0 Refills Prov:ESTHELA ALCOCER MD 06/17/23 Pantoprazole Sodium (Protonix) 40 Mg Tablet.dr, 40 MG PO DAILY for 30 Days, #30 TAB 0 Refills Prov:MESHA KELLOGG AGPCNP 05/24/20 Continued Medications: Aspirin (Aspirin 81MG Chew Tab) 81 Mg Tab.chew 1 TAB PO DAILY for 30 Days, #30 TAB 0 Refills Hydrochlorothiazide (Hydrochlorothiazide) 25 Mg Tablet 1 TAB PO DAILY for 30 Days, #30 TAB 0 Refills Losartan Potassium (Losartan Potassium) 50 Mg Tablet 50 MG PO BID PRN for INCREASED BLOOD PRESSURE, TAB Metformin HCl (Metformin HCl) 1,000 Mg Tablet 1 TAB PO BID for 30 Days, #60 TAB 0 Refills Pantoprazole Sodium (Pantoprazole Sodium) 40 Mg Tablet.dr 40 MG PO DAILY for reflux, TAB Simvastatin (Simvastatin) 20 Mg Tablet 1 TAB PO HS for 30 Days, #30 TAB 0 Refills Verapamil HCl (Verapamil Sr) 240 Mg Cap24h.pel 360 MG PO DAILY PRN for daily Time spent arranging discharge: 1-30 minutes ATTESTATION BY PHYSICIAN I have seen and examined the patient. I reviewed the documentation, medical decision making, and treatment plan as noted by the resident provider above. I agree with the findings and plan of care. Ramon Marshall MD, GERARDO MD May 12, 2024 15:39
[2024-05-12] MEDS: acetaMINOPHEN 325 MG TAB PO PRN (17:29)
--- NOTE | 2024-05-12 18:04 | NUR ---
PATIENT IS SITTING UP IN RECLINER AND STATES THAT DR TOLD HIM IS GOING HOME TODAY , AT [facility] .
--- NOTE | 2024-05-12 19:20 | NUR ---
DISCHARGE RECEIVED REPORT FROM AM NURSE TERESITA, PENDING D/C ORDERS. DISCHARGE ORDERS RECEIVED UPON CHART CHECK. DISCHARGE PAPERS PREPARED AND PRINTED. PT MADE AWARE OF DISCHARGE ORDERS. DISCHARGE INSTRUCTIONS GIVEN. INFORMED THAT NO CHANGES WERE DONE ON HOME MEDS. INSTRUCTED TO SET UP APPOINTMENT FOR PCP AND FOR REFERRAL TO CARDIOLOGY. PT VERBALIZES HE ALREADY SET UP PCP FOLLOW FOR WEDNESDAY. DISCONTINUED PIV WITH CATHETER INTACT. PCP INSTRUCTED TO WHEEL PT DOWN TO THE LOBBY. DISCHARGED PT IN STABLE CONDITION.
== END 2024-05-12 19:42 | disposition home or self-care (01) | DRG 305 ==
LOC: EDH 20:13 → EDHIP 23:25 → 3DH 05-11 00:48
PROVIDERS: ADMIT Internal Medicine; ATTEND Internal Medicine
PROC: 5A09357 Assistance with Respiratory Ventilation, Less than 24 Consecutive Hours, Continuous Positive Airway Pressure (ICD-10-PCS; principal; 2024-05-11)
PROC: 5A09357 Assistance with Respiratory Ventilation, Less than 24 Consecutive Hours, Continuous Positive Airway Pressure (ICD-10-PCS; 2024-05-12)
DX: I16.0 Hypertensive urgency (principal); E11.9 Type 2 diabetes mellitus without complications; G47.33 Obstructive sleep apnea (adult) (pediatric); J44.89 Other specified chronic obstructive pulmonary disease; I25.10 Atherosclerotic heart disease of native coronary artery without angina pectoris; G30.9 Alzheimer's disease, unspecified; I11.9 Hypertensive heart disease without heart failure; F02.80 Dementia in other diseases classified elsewhere, unspecified severity, without behavioral disturbance, psychotic disturbance, mood disturbance, and anxiety; Z20.822 Contact with and (suspected) exposure to COVID-19; K21.9 Gastro-esophageal reflux disease without esophagitis; E78.5 Hyperlipidemia, unspecified; Z82.49 Family history of ischemic heart disease and other diseases of the circulatory system; Z79.899 Other long term (current) drug therapy; Z83.438 Family history of other disorder of lipoprotein metabolism and other lipidemia; I25.2 Old myocardial infarction
CPT/HCPCS: 36415; 71045; 80048; 80305; 81001; 82550; 82948; 83036; 83735; 83880; 84100; 84484; 85025; 87635; 87804; 93005; 93306; 94660; G0378; J0360; J1650; J3475

== ENCOUNTER 2024-08-29 13:38 | Emergency (ER) | payer BC, OTHER ==
[~2024-08-29] VITALS: Ht 182.9 cm; Wt 135.6 kg
[~2024-08-29 13:38] MED LIST changes: +HYDR25TA PO; -LOSA1TAB42 PO; +LOSA50TA64 PO; -METF-444 PO; +METF-446 PO; -METO100T14 PO; -PANT40TA PO; +PANT40TA54 PO; +VERA240C3 PO; -VERA360C2 PO
--- NOTE | 2024-08-29 13:49 | ERN ---
ED Note History of Present Illness Stated Complaint: DIZZINESS Chief Complaint: Dizzy/Light Headed Time Seen by MD: 13:40 Dictation: PATIENT IS A 48-YEAR-OLD MALE COMING IN TODAY WITH COMPLAINTS OF HAVING LIGHTHEADEDNESS AND FEELING LIKE HIS HEART WAS RACING. HE DENIES CHEST PAIN BACK PAIN NO SOB. STATES HE HAS A HISTORY OF CAD HYPERTENSION DIABETES, USED TO SEE DR. 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 NO CHEST PAIN AT THIS TIME. PATIENT NOTED TO BE TACHYCARDIC IN TRIAGE HEART RATE 106-107 REGULAR Allergies: Coded Allergies: No Known Drug Allergies (Unverified Allergy, Unknown, 05/19/15) Home Meds Reported Medications Hydrochlorothiazide (Hydrochlorothiazide) 25 Mg Tablet, 1 TAB PO DAILY for 30 Days, #30 TAB 0 Refills 05/11/24 Aspirin (ASPIRIN 81MG CHEW TAB) 81 Mg Tab.chew, 1 TAB PO DAILY for 30 Days, #30 TAB 0 Refills 05/11/24 Metformin HCl (Metformin HCl) 1,000 Mg Tablet, 1 TAB PO BID for 30 Days, #60 TAB 0 Refills 05/11/24 Simvastatin (Simvastatin) 20 Mg Tablet, 1 TAB PO HS for 30 Days, #30 TAB 0 Ref ills 05/11/24 Verapamil HCl (Verapamil Sr) 240 Mg Cap24h.pel, 360 MG PO DAILY PRN for daily 05/11/24 Losartan Potassium (Losartan Potassium) 50 Mg Tablet, 50 MG PO BID PRN for INCREASED BLOOD PRESSURE, TAB 05/11/24 Pantoprazole Sodium (Pantoprazole Sodium) 40 Mg Tablet.dr, 40 MG PO DAILY for reflux, TAB 05/11/24 Past Medical History Past Medical History: Diabetes-Type II, Heart Disease, Hypertension Additional Past Medical Hx: GASTRITIS Surgical History: None Surgical History Other: STENTS, CARDIAC ABLATION RN Note Reviewed/Agreed w/PFSH: Yes Review of System Dictation CONSTITUTIONAL: NEGATIVE EXCEPT FOR HPI HEAD/FACE: NEGATIVE EXCEPT FOR HPI EENT: NEGATIVE EXCEPT FOR HPI RESPIRATORY: NEGATIVE EXCEPT FOR HPI PALPITATIONS GASTROINTESTINAL/ABDOMINAL: NEGATIVE EXCEPT FOR HPI GENITOURINARY: NEGATIVE EXCEPT FOR HPI MUSCULOSKELETAL: NEGATIVE EXCEPT FOR HPI INTEGUMENTARY: NEGATIVE EXCEPT FOR HPI NEUROLOGICAL/PSYCH: NEGATIVE EXCEPT FOR HPI HAD/DIZZY HEMATOLOGIC/LYMPHATIC: NEGATIVE EXCEPT FOR HPI ALL SYSTEMS NEGATIVE, EXCEPT NOTED ABOVE. 13 POINT REVIEW OF SYSTEMS ASSESSED AND ALL NEGATIVE EXCEPT FOR ABOVE. Initial Vital Sign VS Vital Signs Date Time Temp Pulse Resp B/P (MAP) Pulse Ox O2 Delivery O2 Flow Rate FiO2 08/29/24 13:41 98.2 105 16 193/110 98 Room Air* 0 21 Physical Exam Dictation VITAL SIGNS REVIEWED GENERAL APPEARANCE: ALERT, ORIENTED X 3, NO ACUTE DISTRESS, WELL DEVELOPED, NOURISHED. OBESE HEAD AND FACE: NON-TRAUMATIC. EYES: PERRL, PINK CONJUNCTIVAS, EYELID NO TRAUMA, ANTERIOR CHAMBER WITH ARCUS SENILIS. EARS: PINNAS INTACT AND NO SIGNS OF TRAUMA OR ERYTHEMA EAR CANALS CLEAR AND NO DISCHARGE TM NO ERYTHEMA NOSE: NO DISCHARGE, NO BLEEDING. OROPHARYNX: MOUTH NORMAL, TONGUE PINK, PHARYNX CLEAR,NO ERYTHEMA, TONSILS NO EXUDATES, NO ABSCESSES NOTED, MUCOUS MEMBRANE MOIST NECK: SUPPLE, NON-TENDER, NO THYROMEGALY, NO MASSES, NO JVD, NO BRUITS BREAST:DEFERRED CHEST:NO TENDERNESS, NO CREPITUS, NO PARADOXICAL MOVEMENT, NO RETRACTIONS LUNGS:CLEAR, WELL-VENTILATED, SYMMETRIC, NO RALES, NO WHEEZING, NO RHONCHI, NO STRIDOR, GOOD BREATH SOUNDS BILATERALLY HEART: TACHYCARDIC, NO MURMUR, NO GALLOPS VASCULAR: NO PERIPHERAL EDEMA, ABDOMEN: SOFT, POSITIVE BOWEL SOUNDS, NONDISTENDED, NO GUARDING, NONTENDER, NO REBOUND, NO MASSES NO HEPATOMEGALY, NO SPLENOMEGALY, NO CASTILLO'S SIGN, NO HERNIAS. RECTAL: DEFERRED GENITAL: DEFERRED NEUROLOGICAL: NORMAL SPEECH, MOTOR FUNCTION INTACT, SENSORY FUNCTION INTACT MUSCULOSKELETAL: NECK NONTENDER, FULL RANGE OF MOTION, BACK NONTENDER, FULL RANGE OF MOTION, EXTREMITIES: NONTENDER, FULL RANGE OF MOTION SKIN: COLOR PINK, DRY, NO TURGOR, NO RASH, NO LACERATIONS, NO ABRASIONS, NO CONTUSIONS. LYMPHATIC: DEFERRED Results (Laboratory/Radiology) Laboratory/Radiology Laboratory Tests Test 08/29/24 14:00 White Blood Count 6.9 K/uL (4.8-10.8) Red Blood Count 5.15 MIL/uL (4.50-6.20) Hemoglobin 14.7 g/dL (14.0-18.0) Hematocrit 44.7 % (42-54) Mean Corpuscular Volume 86.8 fL (79-99) Mean Corpuscular Hemoglobin 28.5 pg (27.0-33.0) Mean Corpuscular Hemoglobin Concent 32.9 g/dL (32.0-36.0) Red Cell Distribution Width 15.2 % (11.0-15.5) Platelet Count 157 K/uL (130-400) Mean Platelet Volume 10.8 fL (7.5-10.5) H Immature Granulocyte % (Auto) 0.7 % (0-1) Neutrophils (%) (Auto) 61.1 % (40.0-77.0) Lymphocytes (%) (Auto) 25.5 % (21.0-51.0) Monocytes (%) (Auto) 10.9 % (3.0-13.0) Eosinophils (%) (Auto) 1.4 % (0.0-8.0) Basophils (%) (Auto) 0.4 % (0.0-5.0) Neutrophils # (Auto) 4.2 K/uL (1.8-7.7) Lymphocytes # (Auto) 1.8 K/uL (1.0-4.8) Monocytes # (Auto) 0.8 K/uL (0.1-1.0) Eosinophils # (Auto) 0.10 K/uL (0.00-0.70) Basophils # (Auto) 0.03 K/uL (0.00-0.20) Absolute Immature Granulocyte (auto 0.05 K/uL (0-1) Nucleated Red Blood Cells 0.0 % (0.0-0.19) Sodium Level 138 mmol/L (136-145) Potassium Level 4.1 mmol/L (3.5-5.1) Chloride Level 100 mmol/L (101-111) L Carbon Dioxide Level 31 mmol/L (21-32) Blood Urea Nitrogen 21 mg/dL (7-18) H Creatinine 1.0 mg/dL (0.5-1.3) Glomerular Filtration Rate Calc 93 mL/min (>90) Random Glucose 122 mg/dL (70-105) H Total Calcium 9.4 mg/dL (8.5-10.1) Magnesium Level 1.60 mg/dL (1.80-2.40) L Troponin I High Sensitivity 15 ng/L (4-75) Lipase 94 U/L (16-77) H 1320/CHEST X-RAY CLEAR CLEAR COMPARED TO 05/10/2024 FILL Labs Reviewed?: Yes EKG Comment: EKG SINUS TACHYCARDIA/HEART RATE 103/OR INTERVAL 226 MILLISECOND//LEFT AXIS DEVIATION/NONSPECIFIC CHANGES IN ANTEROLATERAL LEADS ED Course ED Course Orders Procedure Category Date Status Time 12 Lead Ekg Tracing- EKG 08/29/24 Complete Technical 13:41 Cbc With Differential LAB 08/29/24 Complete 13:45 Troponin I High LAB 08/29/24 Complete Sensitivity 13:45 0.9%Nacl 1000ml (Ns PHA 08/29/24 Complete 1000ml) 14:00 Lipase LAB 08/29/24 Complete 13:45 Basic Metabolic Panel LAB 08/29/24 Complete 13:45 Chest 1vw RAD 08/29/24 Resulted 13:45 Magnesium LAB 08/29/24 Complete 13:45 Magnesium 2gm Premix PHA 08/29/24 Logged 50ml (Magnesium 2gm 15:00 Current Medications Medications (Trade) Dose Ordered Sig/Caroline Route PRN Reason Start Time Stop Time Status Last Admin Dose Admin Magnesium Sulfate 50 ml @ 0 mls/hr PROTOCOL IV 08/29/24 15:00 09/28/24 14:59 UNV Sodium Chloride 1,000 ml @ 0 mls/hr ONCE ONCE IV 08/29/24 14:00 08/29/24 14:01 DC 08/29/24 14:05 Vital Signs Date Time Temp Pulse Resp B/P (MAP) Pulse Ox O2 Delivery O2 Flow Rate FiO2 08/29/24 14:00 98.1 98 16 177/97 98 Room Air* 0 21 08/29/24 13:44 98.2 105 16 193/110 98 Room Air 0 08/29/24 13:41 98.2 105 16 193/110 98 Room Air* 0 21 1445/PATIENT HAS A MAGNESIUM 1.60, WE WILL SEND PATIENT HOME WITH ORAL REPLACEMENTS PATIENT NOT TACHYCARDIC FEELS BETTER AFTER FLUIDS. DISCHARGED HOME TO FOLLOW UP WITH HIS PRIMARY CARE DOCTOR. HEART Score Response (Comments) Value EKG: Repolarization changes 1 Age: 45-65yrs (+1) 1 Risk Factors: 1-2 risk factors (+1) 1 Initial Troponin: Normal limit (0) 0 Total 3 Medical Decision Making MDM MDM: DIFFERENTIAL DIAGNOSIS: ACS/AMI/ RATIONALE: TESTS CONSIDERED AND ORDERED SECONDARY TO SHARED DECISION MAKING INCLUDE: ELECTROLYTE BY LAST DEHYDRATION/PNEUMONIA/KIRSTEN PREVIOUS OUTSIDE RECORDS REVIEWED: OLD ER VISITS. EKG/LABS/RADIOLOGY RISK OF COMPLICATION AND/OR MORBIDITY OR MORTALITY OF PATIENT MANAGEMENT: NONE MEDICATIONS-PER MEDICATION RECONCILIATION NEED FOR HOSPITALIZATION: PATIENT DOES NOT MEET CRITERIA FOR HOSPITALIZATION. NO NEED FOR EMERGENCY MAJOR/MINOR SURGERY: NO THERE ARE NO SOCIAL CONCERNS WITH THIS PATIENT. PRESCRIPTION DRUG MANAGEMENT MAGNESIUM PRESCRIPTIONS WILL INCLUDE SYMPTOMATIC CARE PATIENT'S PRIOR EXTERNAL MEDICAL RECORDS FROM OTHER ER VISITS WERE REVIEWED BY ME INDICATED. PRIOR TESTING AND RESULTS FROM PREVIOUS VISITS WERE REVIEWED. PRIOR TESTS WERE TAKEN INTO ACCOUNT WITH MEDICAL DECISION MAKING AND RESOURCE UTILIZATION, INDEPENDENT HISTORIAN/HISTORIANS WERE USED TO OBTAIN COMPLETE MEDICAL HISTORY. I INDEPENDENTLY INTERPRETED THE TEST THAT WERE PERFORMED, RESULTS WERE REVIEWED BY ME AND CONSIDERED FINDINGS ON RADIOLOGY IF ORDERED. MEDICAL MANAGEMENT AND EXAMINATION INTERPRETATION DISCUSSIONS WERE HAD BY ME WITH OTHER QUALIFIED HEALTHCARE PROFESSIONALS INDICATED FOR THE PATIENT'S CARE. DX & DISP Disposition: Discharge Departure Impression: Primary Impression: Hypomagnesemia Additional Impressions: Dehydration, Hyperglycemia, Elevated lipase, Benign hypertension Condition: Stable Scripts Magnesium Oxide/Mag Aa Chelate (Magnesium 300 mg Capsule) 300 Mg Capsule 300 MG PO DAILY for 10 Days, #10 CAP 0 Refills Prov: CHRIS JIMENEZ WHISTLE PUNK 08/29/24 Additional Instructions: FOLLOW-UP WITH PRIMARY CARE PROVIDER IN 1 TO 2 DAYS. TAKE MEDICATIONS DIRECTED HERE IN THE EMERGENCY ROOM. OKAY TO CONTINUE HOME MEDICATIONS UNLESS OTHERWISE DISCUSSED DURING YOUR VISIT IN THE EMERGENCY ROOM TODAY. RETURN TO YOUR NEAREST EMERGENCY ROOM IF SYMPTOMS WORSEN OR IF THERE IS NO IMPROVEMENT. CALL 911 IF YOU NEED IMMEDIATE ASSISTANCE. TAKE TYLENOL OR MOTRIN [id number] NEEDED AND IF NO CONTRAINDICATIONS ARE PRESENT. INCREASE ORAL HYDRATION. A WOUND CULTURE OR URINE CULTURE WAS ORDERED HERE IN THE EMERGENCY ROOM DEPARTMENT PLEASE FOLLOW-UP WITH PRIMARY CARE PROVIDER AND ADVISE THEM TO GET REPEAT PORTS FROM OUR FACILITY. IF YOU HAD ANY DONNA WRAP/SPLINTS THAT WERE APPLIED HERE, PLEASE DO NOT REMOVE THEM UNTIL YOU SEE YOUR PRIMARY CARE OR SPECIALTY. TAKE MAGNESIUM DIRECTED DAILY UNTIL GONE. INCREASE YOUR WATER INTAKE. SEE YOUR PRIMARY CARE DOCTOR FOR FOLLOW UP IN 1-2 DAYS NEEDED. Referrals: SELF,REFERRAL (PCP) Time of Disposition: 14:48 I have reviewed the case, and I agree with, Diagnosis and Plan CHRIS JIMENEZ NP Aug 29, 2024 13:49
[2024-08-29] MEDS: 0.9%NACL 1000ML 1,000 ML IV ONE (14:05)
--- NOTE | 2024-08-29 14:08 | EKG ---
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
[2024-08-29 14:16] LABS: BASOPHILS # (AUTO) 0.03 K/uL (0.00-0.20); BASOPHILS % (AUTO) 0.4 % (0.0-5.0); EOSINOPHILS % (AUTO) 1.4 % (0.0-8.0); HEMATOCRIT 44.7 % (42-54); IMMATURE GRANULOCYTE ABSOLUTE 0.05 K/uL (0-1); LYMPHOCYTES # (AUTO) 1.8 K/uL (1.0-4.8); LYMPHOCYTES % (AUTO) 25.5 % (21.0-51.0); MEAN CORPUSCULAR HEMOGLOBIN 28.5 pg (27.0-33.0); MEAN CORPUSCULAR HGB CONC 32.9 g/dL (32.0-36.0); MEAN CORPUSCULAR VOLUME 86.8 fL (79-99); MONOCYTES # (AUTO) 0.8 K/uL (0.1-1.0); MONOCYTES % (AUTO) 10.9 % (3.0-13.0); NEUTROPHILS # (AUTO) 4.2 K/uL (1.8-7.7); NEUTROPHILS % (AUTO) 61.1 % (40.0-77.0); PLATELET COUNT (AUTO) 157 K/uL (130-400); RED BLOOD CELL COUNT(AUTO) 5.15 MIL/uL (4.50-6.20); RED CELL DISTRIBUTION WIDTH 15.2 % (11.0-15.5); WHITE BLOOD COUNT (AUTO) 6.9 K/uL (4.8-10.8)
--- NOTE | 2024-08-29 14:20 | HMCIMG ---
PORTABLE CHEST RADIOGRAPH INDICATION: SHORTNESS A BREATH COMPARISON: 05/10/2024 FINDINGS: Heart size is normal. The pulmonary vascularity and gal appear normal. No abnormal pulmonary parenchymal opacity or consolidation identified. No significant pleural effusion noted. No pneumothorax detected. IMPRESSION: No radiographic evidence for any acute cardiopulmonary process.
[2024-08-29 14:33] LABS: MAGNESIUM 1.6 mg/dL (1.80-2.40); POTASSIUM 4.1 mmol/L (3.5-5.1)
[2024-08-29 14:45] VITALS: BP 154/90; PULSE 92; RESP 16; TEMP 98.1; O2SAT 98
[2024-08-29] MEDS ORDERED: MAGN300C PO (14:49)
[2024-08-29] MEDS ORDERED: MAGNESIUM 2GM PREMIX 50ML 50 ML IV SCH (15:00)
== END 2024-08-29 15:13 | disposition home or self-care (01) ==
LOC: EDH 13:38
DX: E86.0 Dehydration (principal); E11.65 Type 2 diabetes mellitus with hyperglycemia; E83.42 Hypomagnesemia; I11.9 Hypertensive heart disease without heart failure; R74.8 Abnormal levels of other serum enzymes; Z79.82 Long term (current) use of aspirin; Z79.84 Long term (current) use of oral hypoglycemic drugs; Z79.899 Other long term (current) drug therapy
CPT/HCPCS: 99285; 71045; 83735; 84484; 80048; 83690; 85025; 36415; 93005; J7030

== ENCOUNTER 2024-12-28 21:43 | Emergency (ER) | payer OTHER, BC ==
[~2024-12-28] VITALS: Ht 182.9 cm; Wt 133.8 kg
[~2024-12-28 21:43] MED LIST changes: +MAGN300C PO; +VERA240C10 PO; -VERA240C3 PO
--- NOTE | 2024-12-28 22:24 | ERN ---
ED Note History of Present Illness Stated Complaint: C/O COUGH, NOT FEELING WELL, (+)COVID A WK AGO Chief Complaint: Hypertension Time Seen by MD: 21:51 Time Seen by Midlevel: 21:51 Dictation: The patient is a 49-year-old male with a history of hypertension, hyperlipidemia, diabetes, cardiomegaly who presents to the emergency department with complaints of productive cough and sweating that happened tonight. Patient reported that he tested positive for COVID 19 a week ago. Reports fevers a week ago but none currently. Patient reported concerns because of his heart history. Patient however denies any chest pain or shortness of breath. Allergies: Coded Allergies: No Known Drug Allergies (Unverified Allergy, Unknown, 05/19/15) Home Meds Active Scripts Magnesium Oxide/Mag Aa Chelate (Magnesium 300 mg Capsule) 300 Mg Capsule, 300 MG PO DAILY for 10 Days, #10 CAP 0 Refills Prov:CHRIS JIMENEZ LACQUER SIZER 08/29/24 Reported Medications Hydrochlorothiazide (Hydrochlorothiazide) 25 Mg Tablet, 1 TAB PO DAILY for 30 Days, #30 TAB 0 Refills 05/11/24 Aspirin (ASPIRIN 81MG CHEW TAB) 81 Mg Tab.chew, 1 TAB PO DAILY for 30 Days, #30 TAB 0 Refills 05/11/24 Metformin HCl (Metformin HCl) 1,000 Mg Tablet, 1 TAB PO BID for 30 Days, #60 TAB 0 Refills 05/11/24 Simvastatin (Simvastatin) 20 Mg Tablet, 1 TAB PO HS for 30 Days, #30 TAB 0 Refills 05/11/24 Verapamil HCl (Verapamil Sr) 240 Mg Cap24h.pel, 360 MG PO DAILY PRN for daily 05/11/24 Losartan Potassium (Losartan Potassium) 50 Mg Tablet, 50 MG PO BID PRN for INCREASED BLOOD PRESSURE, TAB 05/11/24 Pantoprazole Sodium (Pantoprazole Sodium) 40 Mg Tablet.dr, 40 MG PO DAILY for reflux, TAB 05/11/24 Past Medical History Past Medical History: Diabetes-Type II, High Cholesterol, Hypertension, Other Additional Past Medical Hx: HX OF "OVERSIZED HEART" Surgical History: None Surgical History Other: STENTS, CARDIAC ABLATION RN Note Reviewed/Agreed w/PFSH: Yes Review of System Dictation Constitutional: Negative for fever,chills, and weight loss Eyes: Negative for injury, pain,redness, and discharge ENT: Negative for injury,pain or swelling Cardiovascular: Negative for chest pain, palpitations, and edema Respiratory: Negative for shortness of breath, and wheezing, positive for cough Abdomen/GI: Negative for abdominal pain, nausea, vomiting, diarrhea, and constipation Back: Negative for injury and pain : Negative for injury, bleeding and discharge MS/Extremity: Negative for injury and deformity Skin: Negative for rash, and discoloration Neuro: Negative for headache, weakness, numbness, tingling, and seizure Psych: Negative for suicide ideation, homicidal ideation, and hallucinations Initial Vital Sign VS Vital Signs Date Time Temp Pulse Resp B/P (MAP) Pulse Ox O2 Delivery O2 Flow Rate FiO2 12/28/24 21:46 98.6 98 20 207/118 98 Room Air 12/28/24 22:15 0 21 Physical Exam Dictation Vital Signs reviewed General Appearance: Alert, oriented x 3, no acute distress, well developed, nourished. Head and Face: non-traumatic. Eyes: PERRL, pink conjunctivas, eyelid no trauma, anterior chamber with arcus senilis. Ears: Pinnas intact and no signs of trauma or erythema ear canals clear and no discharge TM no erythema Nose: No discharge, no bleeding. Oropharynx: Mouth normal, tongue pink. pharynx clear,no erythema, tonsils no exudates, no abscesses noted, mucous membrane moist Neck: Supple, non-tender, no thyromegaly, no masses, no JVD, no bruits Breast:Deferred Chest:No tenderness, no crepitus, no paradoxical movement, no retractions Lungs:Clear, well-ventilated, symmetric, no rales, no wheezing, no rhonchi, no stridor, good breath sounds bilaterally Heart: Regular rate, regular rhythm, no murmur, no gallops Vascular: no peripheral edema, Abdomen: Soft, positive bowel sounds, nondistended, no guarding, nontender, no rebound, no masses no hepatomegaly, no splenomegaly, no Liang's sign, no hernias. Rectal: Deferred Genital: Deferred Neurological: Normal speech, motor function intact, sensory function intact Musculoskeletal: Neck nontender, full range of motion, back nontender, full range of motion, Extremities: nontender, full range of motion Skin: Color pink, dry, no turgor, no rash, no lacerations, no abrasions, no contusions. Lymphatic: Deferred Results (Laboratory/Radiology) Laboratory/Radiology Laboratory Tests Test 12/28/24 22:12 12/28/24 22:57 White Blood Count 7.7 K/uL (4.8-10.8) Red Blood Count 5.45 MIL/uL (4.50-6.20) Hemoglobin 15.3 g/dL (14.0-18.0) Hematocrit 47.0 % (42-54) Mean Corpuscular Volume 86.2 fL (79-99) Mean Corpuscular Hemoglobin 28.1 pg (27.0-33.0) Mean Corpuscular Hemoglobin Concent 32.6 g/dL (32.0-36.0) Red Cell Distribution Width 14.6 % (11.0-15.5) Platelet Count 193 K/uL (130-400) Mean Platelet Volume 11.6 fL (7.5-10.5) H Immature Granulocyte % (Auto) 0.6 % (0-1) Neutrophils (%) (Auto) 58.9 % (40.0-77.0) Lymphocytes (%) (Auto) 28.1 % (21.0-51.0) Monocytes (%) (Auto) 9.7 % (3.0-13.0) Eosinophils (%) (Auto) 2.2 % (0.0-8.0) Basophils (%) (Auto) 0.5 % (0.0-5.0) Neutrophils # (Auto) 4.5 K/uL (1.8-7.7) Lymphocytes # (Auto) 2.2 K/uL (1.0-4.8) Monocytes # (Auto) 0.8 K/uL (0.1-1.0) Eosinophils # (Auto) 0.17 K/uL (0.00-0.70) Basophils # (Auto) 0.04 K/uL (0.00-0.20) Absolute Immature Granulocyte (auto 0.05 K/uL (0-1) Nucleated Red Blood Cells 0.0 % (0.0-0.19) Sodium Level 140 mmol/L (136-145) Potassium Level 3.8 mmol/L (3.5-5.1) Chloride Level 103 mmol/L (101-111) Carbon Dioxide Level 27 mmol/L (21-32) Blood Urea Nitrogen 28 mg/dL (7-18) H Creatinine 1.1 mg/dL (0.5-1.3) Glomerular Filtration Rate Calc 82 mL/min (>90) Random Glucose 153 mg/dL (70-105) H Total Calcium 9.3 mg/dL (8.5-10.1) Magnesium Level 1.60 mg/dL (1.80-2.40) L Total Creatine Kinase 96 U/L (21-232) # Troponin I High Sensitivity 20 ng/L (4-75) Urine Opiates Screen NEGATIVE (NEGATIVE) Urine Barbiturates Screen NEGATIVE (NEGATIVE) Urine Phencyclidine Screen NEGATIVE (NEGATIVE) Urine Amphetamines Screen NEGATIVE (NEGATIVE) Urine Benzodiazepines Screen NEGATIVE (NEGATIVE) Urine Cocaine Screen NEGATIVE (NEGATIVE) Urine Marijuana (THC) Screen NEGATIVE (NEGATIVE) REASON: cough ORDERING PHYSICIAN: TAZ STORY PROCEDURE: CXR1VW - CHEST 1VW EXAM: CR Chest, 1 View. CLINICAL HISTORY: cough COMPARISON: Radiograph dated August 29, 2024 FINDINGS: LUNGS: The lungs show no infiltrate or other acute finding. PLEURAL SPACES: No evidence of pleural effusion or pneumothorax. MEDIASTINUM: Cardiac size and mediastinal contours within normal limits. Heart size is stable. BONES: No aggressive appearing osseous lesion seen. IMPRESSION: No acute cardiopulmonary pathology is evident. /[place] Labs Reviewed?: Yes EKG: (+) rhythm (Sinus rhythm) EKG Comment: Date:12/28/2024 Time:2152 Ventricular rate:95 DC interval:227 QRS duration:111 QT/QTc:486/486 EKG interpretation: Sinus rhythm, PVCs, prolonged DC Reviewed by ED Attending no STEMI ED Course ED Course Orders Procedure Category Date Status Time Cbc With Differential LAB 12/28/24 Complete 22:09 Chest 1vw RAD 12/28/24 Resulted 22:09 12 Lead Ekg Tracing- EKG 12/28/24 Logged Technical 22:09 Magnesium LAB 12/28/24 Complete 22:09 Creatine Kinase, Total LAB 12/28/24 Complete 22:09 Troponin I High LAB 12/28/24 Complete Sensitivity 22:09 Basic Metabolic Panel LAB 12/28/24 Complete 22:09 Drug Screen Urine LAB 12/28/24 Complete 22:09 Guaifenesin-Codeine PHA 12/28/24 Complete Syrup 5ml (Robitussi 22:30 Magnesium Oxide PHA 12/28/24 Complete (Mag-Ox) 23:30 Hydralazine 20mg Inj PHA 12/29/24 In Process (Apresoline 20mg In 00:00 Current Medications Medications (Trade) Dose Ordered Sig/Caroline Route PRN Reason Start Time Stop Time Status Last Admin Dose Admin Guaifenesin/ Codeine Phosphate (RobiTUSSin AC 5 ML SYRUP) 10 ml ONCE ONCE PO 12/28/24 22:30 12/28/24 22:31 DC 12/28/24 22:23 Hydralazine HCl (APRESOLine 20MG INJ) 10 mg ONCE ONCE IV 12/29/24 00:00 12/29/24 00:01 Magnesium Oxide (Mag-Ox) 400 mg ONCE ONCE PO 12/28/24 23:30 12/28/24 23:31 DC 12/28/24 23:48 Vital Signs Date Time Temp Pulse Resp B/P (MAP) Pulse Ox O2 Delivery O2 Flow Rate FiO2 12/28/24 23:57 20 18 156/89 98 Room Air* 0 12/28/24 23:51 80 18 177/99 98 Room Air* 0 12/28/24 22:53 84 18 159/93 98 Room Air* 0 12/28/24 22:25 85 16 173/99 98 Room Air* 0 12/28/24 22:15 98.1 89 14 180/106 98 Room Air* 0 12/28/24 21:46 98.6 98 20 207/118 98 Room Air Medical Decision Making MDM The patient is a 49-year-old male with a history of hypertension, hyperlipidemia, diabetes, cardiomegaly who presents to the emergency department with complaints of productive cough and sweating that happened tonight. Patient reported that he tested positive for COVID 19 a week ago. Reports fevers a week ago but none currently. Patient reported concerns because of his heart history. Patient however denies any chest pain or shortness of breath. CBC showed no leukocytosis, no anemia, chemistry showed mild hypomagnesemia whi ch was replaced, negative troponin. Toxicology negative. X-ray showed no acute pathology. Patient's blood pressure improved spontaneously. On physical exam patient in no acute distress, nontoxic appearance, clear lung sounds. Stable vital signs. Patient currently with no chest pain or shortness of breath. Patient was just here to get evaluated because he had a coughing episode and then started sweating but otherwise denies any other symptoms. Patient will be discharged to follow up with PCP. Differential diagnosis: Pneumonia, bronchitis, ACS, upper respiratory infection Need for hospitalization: Patient does not meet criteria for hospitalization. There are no social concerns with this patient. DX & DISP Disposition: Discharge Departure Impression: Primary Impression: Viral URI with cough Additional Impressions: Hypomagnesemia, Elevated blood pressure reading Condition: Stable Additional Instructions: Your labs were unremarkable except your magnesium was slightly low which was replaced in ER. Your x-ray did not show any signs of pneumonia. Please follow up with your primary doctor in 1-2 days. If anything worsens please return to ER. FOLLOW-UP WITH PRIMARY CARE PROVIDER IN 1 TO 2 DAYS. TAKE MEDICATIONS DIRECTED HERE IN THE EMERGENCY ROOM. OKAY TO CONTINUE HOME MEDICATIONS UNLESS OTHERWISE DISCUSSED DURING YOUR VISIT IN THE EMERGENCY ROOM TODAY. RETURN TO YOUR NEAREST EMERGENCY ROOM IF SYMPTOMS WORSEN OR IF THERE IS NO IMPROVEMENT. CALL 911 IF YOU NEED IMMEDIATE ASSISTANCE. TAKE TYLENOL [id number] NEEDED AND IF NO CONTRAINDICATIONS ARE PRESENT. INCREASE ORAL HYDRATION. A WO UND CULTURE OR URINE CULTURE WAS ORDERED HERE IN THE EMERGENCY ROOM DEPARTMENT PLEASE FOLLOW-UP WITH PRIMARY CARE PROVIDER AND ADVISE THEM TO GET REPEAT PORTS FROM OUR FACILITY. IF YOU HAD ANY DONNA WRAP/SPLINTS THAT WERE APPLIED HERE, PLEASE DO NOT REMOVE THEM UNTIL YOU SEE YOUR PRIMARY CARE OR SPECIALTY. Referrals: ZEKE SHANKAR MD (PCP) Time of Disposition: 00:02 I have reviewed the case, and I agree with, Diagnosis and Plan TAZ STORYP Dec 28, 2024 22:24
[2024-12-28 22:46] LABS: CREATININE 1.1 mg/dL (0.5-1.3); GLOMERULAR FILTR. RATE CALC 82.0 mL/min (>90); GLUCOSE,RANDOM 153.0 mg/dL (70-105); SODIUM SERUM 140.0 mmol/L (136-145); UREA NITROGEN, BLOOD 28.0 mg/dL (7-18)
[2024-12-28 22:51] LABS: CREATINE KINASE, TOTAL 96.0 U/L (21-232)
--- NOTE | 2024-12-28 22:51 | HMCIMG ---
EXAM: CR Chest, 1 View. CLINICAL HISTORY: cough COMPARISON: Radiograph dated August 29, 2024 FINDINGS: LUNGS: The lungs show no infiltrate or other acute finding. PLEURAL SPACES: No evidence of pleural effusion or pneumothorax. MEDIASTINUM: Cardiac size and mediastinal contours within normal limits. Heart size is stable. BONES: No aggressive appearing osseous lesion seen. IMPRESSION: No acute cardiopulmonary pathology is evident. /[place]
[2024-12-28 22:59] LABS: IMMATURE GRANULOCYTE ABSOLUTE 0.05 K/uL (0-1); NUCLEATED RED BLOOD CELLS 0.0 % (0.0-0.19); PLATELET COUNT (AUTO) 193 K/uL (130-400); RED BLOOD CELL COUNT(AUTO) 5.45 MIL/uL (4.50-6.20); RED CELL DISTRIBUTION WIDTH 14.6 % (11.0-15.5); WHITE BLOOD COUNT (AUTO) 7.7 K/uL (4.8-10.8)
[2024-12-28] MEDS: MAGNESIUM OXIDE 400 MG TABLET PO ONE (23:48)
[2024-12-28 23:55] LABS: AMPHET/METH SCREEN,URINE NEGATIVE (NEGATIVE); BARBITURATE SCREEN, URINE NEGATIVE (NEGATIVE); CANNABINOID SCREEN,URINE NEGATIVE (NEGATIVE); COCAINE SCREEN,URINE NEGATIVE (NEGATIVE)
--- NOTE | 2024-12-29 00:06 | NUR ---
PER DISTANCE LEARNING PROGRAM COORDINATOR, NO HYDRALAZINE TO BE ADMINISTER
[2024-12-29 00:09] VITALS: BP 155/86; PULSE 72; RESP 18; TEMP 98.4; O2SAT 98
--- NOTE | 2024-12-29 06:46 | EKG ---
[facility] Test Date: 2024-12-28 Test Time: 21:52:50 Pat Name: MADISON SMITH Department: ED Room: Gender: M Box Worker: [birth year] : 1975 Requested By: TAZ STORY Order Number: [id number] Reading MD: Seun Bernstein Measurements Intervals [place] Rate: 95 P: 62 OK: 227 QRS: -52 QRSD: 111 T: 40 QT: 389 QTc: 486 Interpretive Statements Sinus rhythm Multiform ventricular premature complexes Prolonged OK interval LAD, consider left anterior fascicular block Compared to ECG 08/29/2024 13:43:17 Ventricular premature complex(es) now present Sinus tachycardia no longer present Left-axis deviation no longer present Myocardial infarct finding no longer present Electronically Signed On 12-29-2024 16:05:32 CDT by Seun Bernstein Please click the below link to view image of tracing.
== END 2024-12-29 00:11 | disposition home or self-care (01) ==
LOC: EDH 21:43
DX: J06.9 Acute upper respiratory infection, unspecified (principal); E83.42 Hypomagnesemia; E11.9 Type 2 diabetes mellitus without complications; E78.00 Pure hypercholesterolemia, unspecified; I10 Essential (primary) hypertension; B97.89 Other viral agents as the cause of diseases classified elsewhere; Z79.82 Long term (current) use of aspirin; Z79.84 Long term (current) use of oral hypoglycemic drugs; Z79.899 Other long term (current) drug therapy
CPT/HCPCS: 36415; 71045; 80048; 80305; 82550; 83735; 84484; 85025; 93005; 99285